=== PATIENT | female | born 1960 | race African-American/Black ===

== ENCOUNTER 2025-02-08 15:57 | Emergency (ER) | payer BC, SELFPAY ==
[2025-02-08] VITALS (9 sets, daily range): BP systolic 152–162; BP diastolic 79–103; PULSE 100; RESP 16–18; TEMP 36.2; O2SAT 91–100
--- NOTE | ~2025-02-08 | XR_ITS ---
CHEST RADIOGRAPH, PA AND LATERAL CLINICAL HISTORY: cough, sob . COMPARISON: 07/14/2021 TECHNIQUE: PA and lateral views of the chest. FINDINGS The cardiomediastinal silhouette is unremarkable. Platelike atelectasis within the left mid to lower lung field. Patchy alveolar opacification within the left upper lobe for which an infiltrate is suspected The remainder of the lungs are clear. IMPRESSION: Left upper lobe infiltrate Reviewed, dictated and finalized at location A. IMPRESSION: Left upper lobe infiltrate
--- NOTE | 2025-02-08 16:28 | ED.GENADULT ---
HPI - General Adult General Chief complaint: Unspecified Stated complaint: SPITTING UP BROWN MUCOUS Time Seen by Provider: 02/08/25 16:14 Source: patient Mode of arrival: ambulatory Limitations: no limitations History of Present Illness HPI narrative: Patient is a 64 y/o female who presents to the ED with c/o URI symptoms. Patient reports she has been sick over the last couple of days with cough, sinus pressure, headache, body aches, intermittent wheezing. Does note that she had to use a breathing treatment last night. Denies significant shortness of breath however. Reports she has had production of brown sputum with cough. Denies chest pain. Denies fevers, pain or swelling in legs. States has had similar symptoms. Related Data Allergies Allergy/AdvReac Type Severity Reaction Status Date / Time Penicillins Allergy Swelling Verified 02/08/25 16:08 Review of Systems Review of Systems: All systems reviewed & are unremarkable except as noted in HPI. All systems reviewed & are unremarkable except as noted in HPI and below Exam Narrative: GENERAL: Well appearing, obese with BMI of 38.5, non-toxic, in no acute distress. HEAD: Normocephalic, atraumatic. RESPIRATORY: Airway patent, respirations nonlabored. Occasional faint expiratory wheezing heard tony. No significant focal rhonchi. CARDIOVASCULAR: Regular rate and rhythm without murmurs, rubs, or gallops. ABDOMINAL: Soft, no significant tenderness throughout abdomen, nondistended. Normoactive BS. MUSCULOSKELETAL: Moves all extremities. No gross deformities. No calf tenderness. No peripheral edema. SKIN: Warm, dry, normal color. NEURO: A&O X3. Speech clear. Cranial nerves II-XII grossly intact. Steady gait. No ataxic movements. PSYCHIATRIC: Appropriate mood and affect. Normal interaction. Course Vital Signs Vital signs: Vital Signs Temperature 97.2 F L 02/08/25 16:02 Pulse Rate 100 02/08/25 16:02 Respiratory Rate 18 02/08/25 16:02 Blood Pressure 162/79 H 02/08/25 16:02 Pulse Oximetry 96 02/08/25 16:02 Temperature 97.2 F L 02/08/25 16:02 Pulse Rate 100 02/08/25 16:02 Respiratory Rate 16 02/08/25 17:24 Blood Pressure 162/93 H 02/08/25 16:46 Pulse Oximetry 97 02/08/25 17:48 Medical Decision Making [facility] Narrative Medical decision making narrative: Patient presented to ED with several day history of URI symptoms, productive cough, intermittent wheezing. Vital signs are stable upon arrival. Patient very mildly hypertensive, but in no acute distress. Is on medication for this. EKG without ischemic changes. Troponin is undetectable. Patient denying chest pain. Viral swabs are negative. Chest x-ray does show evidence of left upper lobe infiltrate. Will treat for CAP given new productive cough. Laboratory studies are otherwise fairly unremarkable. No leukocytosis. Stable electrolytes. No significant signs of dehydration. Urinalysis clear. Patient feeling improved after nebulizer treatment. Advised to continue inhaler/nebulizers at home, finish antibiotics, have close follow-up with PCP for further evaluation. Patient is in agreement with plan. She feels comfortable going home. Discussed strict return precautions. Patient voiced understanding. Discharged in stable condition. Medical Records Medical records reviewed: Yes I reviewed the external patient's medical records. Vital Signs Vital Signs: Vital Signs Temperature 97.2 F L 02/08/25 16:02 Pulse Rate 100 02/08/25 16:02 Respiratory Rate 18 02/08/25 16:02 Blood Pressure 162/79 H 02/08/25 16:02 Pulse Oximetry 96 02/08/25 16:02 Temperature 97.2 F L 02/08/25 16:02 Pulse Rate 100 02/08/25 16:02 Respiratory Rate 16 02/08/25 17:24 Blood Pressure 162/93 H 02/08/25 16:46 Pulse Oximetry 97 02/08/25 17:48 Lab Data Lab results reviewed: Yes I reviewed the patient's lab results. 02/08/25 16:57 02/08/25 16:57 Labs: Lab Results 02/08/25 02/08/25 02/08/25 Range/Units 16:54 16:57 17:39 WBC 4.8 (4.5-10.0) K/mm3 RBC 4.53 (4.2-5.4) M/mm3 Hgb 13.5 (12.0-15.0) g/dL Hct 40.3 (37.0-47.0) % MCV 89.0 (80-100) fl MCH 29.8 (26-34) pg MCHC 33.5 (32-36) g/dl RDW 13.2 (11.5-14.5) % Plt Count 191 (150-375) k/mm3 MPV 12.3 H (7.4-10.4) fl Immature Gran % (Auto) 0.2 (0-0.5) % Neut % (Auto) 65.8 (45.5-73.1) % Lymph % (Auto) 22.0 (18.3-44.2) % [place] % (Auto) 8.7 H (2.6-8.5) % Eos % (Auto) 2.9 (0-4.4) % Baso % (Auto) 0.4 (0.2-1.2) % Lymph # (Auto) 1.06 (0.9-3.2) K/mm3 [place] # (Auto) 0.4 (0.1-0.6) K/mm3 Eos # (Auto) 0.1 (0-0.3) K/mm3 Baso # (Auto) 0.0 (0.0-0.1) K/mm3 Abs Immat Gran (auto) 0.01 (0.00-0.031) K/mm3 Absolute Neuts (auto) 3.2 (1.3-6.7) K/mm3 Absolute Nucleated RBC 0.000 (0.0-0.012) K/mm3 Nucleated RBC % 0.0 (0.0-0.2) % Sodium 138 (137-145) mmol/L Potassium 4.0 (3.4-5.0) mmol/L Chloride 101 (98-107) mmol/L Carbon Dioxide 27 (22-30) mmol/L Anion Gap 10 (4-12) mmol/L BUN 10 (7-17) mg/dL Creatinine 0.64 L (0.7-1.0) mg/dL Estim Creat Clear Calc 91 ml/min Estimated GFR > 60 (59 - ) Glucose 100 (65-110) mg/dL Calcium 9.6 (8.4-10.2) mg/dL Total Bilirubin 0.4 (0.2-1.3) mg/dL AST 30 (14-36) U/L ALT 38 H (6-35) U/L Alkaline Phosphatase 128 H (38-126) U/L Troponin I < 0.012 (0.000-0.034) ng/mL Total Protein 8.0 (6.3-8.2) g/dL Albumin 4.7 (3.5-5.1) g/dL Urine Color Yellow (Yellow) Urine Appearance Clear (Clear) Urine pH 8.0 (5.0-9.0) Ur Specific [place] 1.019 (1.001-1.035) Urine Protein Negative (Negative) mg/dL Urine Glucose (UA) Negative (Negative) mg/dL Urine Ketones Negative (Negative) mg/dL Ur Blood (Man) Negative (Negative) Urine Nitrate Negative (Negative) Urine Bilirubin Negative (Negative) Urine Urobilinogen 0.2 (<2.0) mg/dL Leukocyte Esterase Rfl Negative (Negative) MICHAEL/UL Influenza A (RT-PCR) Negative (Negative) Influenza B (RT-PCR) Negative (Negative) RSV (RT-PCR) Negative (Negative) SARS-CoV-2 RNA (RT-PCR) Negative (Negative) Imaging Data Attestation: I personally reviewed and interpreted this imaging study as follows: Radiologist's impression: ITS Impressions Chest X-Ray 02/08/25 17:44 IMPRESSION: Left upper lobe infiltrate ECG Data EKG #1: Attestation: I personally reviewed and interpreted this ECG as follows: ECG completion date: 02/09/25 ECG completion time: 18:02 EKG Interpretation: normal rate (85), sinus rhythm (with sinus arrhythmia), non-specific ST changes and other (some baseline artifact) Discharge Plan Discharge Clinical Impression: Pneumonia Qualifiers: Pneumonia type: due to unspecified organism Laterality: left Lung location: upper lobe of lung Qualified Code(s): J18.9 - Pneumonia, unspecified organism Upper respiratory infection Qualifiers: URI type: unspecified URI Qualified Code(s): J06.9 - Acute upper respiratory infection, unspecified Patient Disposition: Home, Self-Care Condition: Stable Instructions: Antibiotic Form, Community Acquired Pneumonia (ED), Viral Syndrome (ED) Additional Instructions: Your testing for COVID, influenza, RSV was negative. Your chest x-ray did show evidence of a pneumonia. Take antibiotics as prescribed. Continue your inhalers as needed. Stay well hydrated. Utilize Tessalon Perles as needed for cough. Continue [id number] cough and cold medicines as needed for symptom relief, such as mucinex, robitussin, dayquil/nyquil. Follow-up closely with your primary care doctor for further evaluation. Return to the ED if you experience worsening or severe symptoms, difficulty breathing, chest pain, unable to keep down food or drink, pain or swelling in legs, or any other symptoms of concern. Patient Language: Amharic Prescriptions: New benzonatate 200 mg capsule 200 mg PO TID PRN (Reason: cough) Qty: 15 0RF doxycycline monohydrate 100 mg tablet 100 mg PO BID 5 Days Qty: 10 0RF Follow-up/Referrals: PHYSICIAN NOT ON STAFF,NONSTAFF [Primary Care Provider] - Time of Disposition: 19:48
--- OUTSIDE RECORDS SUMMARY | 2025-02-08 16:34 | XMS_ITS | Referral Summary ---
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
--- OUTSIDE RECORDS SUMMARY | 2025-02-08 16:34 | XMS_ITS | Clinical Summary ---
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 Gender Identity Not on file Sexual Orientation Not on file Plan of Treatment Health Maintenance Due Date Last Done Comments Breast Cancer Screening-Mammogram 1960 Cervical Cancer Screening 1960 Colon Cancer Screening-Colonoscopy 1960 Depression Screening 1960 Hepatitis C Screening 1960 DTaP/Tdap/Td Vaccine (1 - Tdap) 1971 Hepatitis B Screening 1978 Regular Well Visit/Exam 18-64 1978 Covid-19 Vaccine ( season) 2024 09/14/2022, 02/17/2022, 08/07/2021, Additional history exists Influenza Vaccine (#1) 2024 , 08/07/2021, 09/18/2019, Additional history exists Zoster Vaccine Completed 07/06/2022, 04/13/2022 Pneumococcal vaccine <65 Aged Out 10/14/2022 No longer eligible based on patient's age to complete this topic Insurance [facility] [employer] [id number] Care Teams Wood Piler Relationship Specialty Start Date End Date Phillip Hidalgo MD [address] [place] [address] PCP - General Internal Medicine 10/27/22
--- OUTSIDE RECORDS SUMMARY | 2025-02-08 16:35 | XMS_ITS | Data Portability ---
Author Organization [facility] Delia PARNELL Address [address] [place] [address] Care Team Providers Care Certified Dietary Manager Name Role Phone REGI FRANCIS Primary Care Provider SHERLYN MOSES Developmental Electronics Assembler Assessment Encounter Date Assessment Date Assessment LastModified by Organization Details LastModified Time 04/22/2022 04/22/2022 Deborah DURHAM Not available 04/22/2022 12:19:35 Plan of Treatment Reminders Order Date Submit Date Provider Last Modified By Organization Details Last Modified Time Details Appointments None recorded. Lab vaginal pathogens panel, MEAGAN+probe , vaginal fluid 2023 024 jacquelyn [facility], [address] [facility], [address], [place], [address], 4 16:21:23 urinalysi s, dipstick 2023 024 [email or web address] In-Office Order, Internal Use Only DO Not Attach Compendium DO Not Attach Compendium, Do Not Delete/merge, [id number] 12:34:25 vaginal pathogens panel, MEAGAN+probe , vaginal fluid 2021 022 JENNIFER [facility], [address] [facility], [address], [place], [address], 2 03:07:24 vitamin D, 25-hydrox y, total, serum 2019 020 [facility], [address] [facility], [address], [place], [address], 0 08:50:49 CMP, serum or plasma 2019 020 [facility], [address] [facility], [address], [place], [address], 0 07:10:44 CBC 2019 020 [facility], [address] [facility], [address], [place], [address], 0 07:10:45 lipid panel, serum 2019 020 [facility], [address] [facility], [address], [place], [address], 0 07:10:45 Referral physical therapist referral 2022 023 [facility], [address] [place], [address], 3 13:35:19 physical therapy back referral - please call patient to schedule appt. Thank you 2019 020 [facility], [address] [place], [address], 0 09:04:26 Procedures None recorded. Surgeries None recorded. Imaging MAMMO, screening , digital, bilateral - please call [phone] if this is not the correct code 2023 024 [facility] ([facility]), [address] [place], [address], 5 10:40:51 MAMMO, screening , bilateral 2021 022 [facility] ([facility]), [address] [place], [address], 2 16:34:55 XR, knee 2019 020 [facility] ([facility]), [address] [place], [address], 3 13:59:38 Medication Orders Relafen 750 mg tablet 2022 023 [id number], [address] [place], [place], [id number], 3 12:12:29 Celestone Soluspan 6 mg/mL suspensio n for injection 2022 023 [email or web address] Not available 3 12:57:35 Premarin 0.625 mg/gram vaginal cream 2021 022 JENNIFER Not available 2 12:14:19 cyclobenz aprine 10 mg tablet 2019 020 [facility] Not available 0 11:26:26 fluticaso ne propionat e 50 mcg/actua tion nasal spray,bekah pension 2019 020 [facility] [place], [address], 0 10:29:21 losartan 50 mg tablet 2019 020 [facility], [address] [place], [address], 0 10:29:23 hydrochlo rothiazid e 12.5 mg capsule 2019 020 [facility], [address] [place], [address], 0 10:29:20 Patient TargetsNo targets recorded. Patient Instructions Encounter Date Encounter Id Patient Instructions Last Modified By Organization Details Last Modified Time 04/22/2022 [id number] atrophic vaginitis: care instructions Not available 04/22/2022 12:16:09 well visit, wome n 50 to 65: care instructions Not available 04/22/2022 12:07:24 learning about breast cancer screening Not available 04/22/2022 12:06:33 09/30/2024 [id number] A healthy lifestyle: care instructions Not available 10/02/2024 13:26:20 Attending Physician Attestation S: 63 yo F here for well woman visit. Has lower abdominal midline pain x4 weeks; history of IBS with baseline 2-4 BMs/day. Has polyuria, no vaginal discharge. Has history of elective hysterectomy for contraception. No breast changes, vaginal bleeding. Has some pruritis and vaginal dryness. O: NAD. +bowel sounds. Minimal TTP of RLQ and LLQ. Neg CVA tenderness, obturator sign. A/P: Well woman - Mammo ordered. UTD on colonoscopy. Abd pain - F/u urine dipstick, NuSwab. If negative, f/u with PCP. Vaginal dryness - Not causing discomfort. {{I did not personally see or examine the patient with the resident. I was physically present to provide indirect supervision through entire encounter.* I personally saw the patient with the resident.}} Plan discussed with resident as documented in my brief note above. Taylor Fisher MD [email or web address] Not available 09/30/2024 11:17:12 Reason for Referral please call patient to [facility] appt. Thank you Referring Physician: Regi Francis, Internal Medicine, Encounter Date: 12/31/2019 Physical Therapist Referral for Osteoarthritis of knee Referring Physician: Brad Min, Orthopedic Surgery, Encounter Date: 01/13/2023 Results Created Date Observation Date Name Description Value Unit Range Abnormal Flag Note LastModifiedBy Organization Detail LastModifiedTime 01/20/20 20 01/21/2020 CMP, serum or plasm a glucose 162 mg/dL 65-99 above high normal Not Available [facility] ([facility]) [address] [facility], [place], [address], 01/21/2020 07:10:44 01/20/20 20 01/21/2020 CMP, serum or plasm a BUN 16 mg/dL 6-24 Not Available [facility] ([facility]) [address] [place], [address], 01/21/2020 07:10:44 01/20/20 20 01/21/2020 CMP, serum or plasm a creatinine 0.82 mg/dL 0.57-1 .00 Not Available [facility] ([facility]) [address] [facility] [place], [address], 01/21/2020 07:10:44 01/20/20 20 01/21/2020 CMP, serum or plasm a eGFR if nonafricn AM 79 mL/mi n/1.7 3 >59 Not Available [facility] ([facility]) [address] [place], [address], 01/21/2020 07:10:44 01/20/20 20 01/21/2020 CMP, serum or plasm a eGFR if africn AM 91 mL/mi n/1.7 3 >59 Not Available [facility] ([facility]) [address] [place], [address], 01/21/2020 07:10:44 01/20/20 20 01/21/2020 CMP, serum or plasm a BUN/creatini ne ratio 20 9-23 Not Available [facility] ([facility]) [address] [place], [address], 01/21/2020 07:10:44 01/20/2001/21/2020 CMP, serum or plasm a sodium 139 mmol/ L 134-14 4 Not Available [facility] ([facility]) [address] [place], [address], 01/21/2020 07:10:44 01/20/20 20 01/21/2020 CMP, serum or plasm a potassium 4.3 mmol/ L 3.5-5. 2 Not Available [facility] ([facility]) [address] [facility] [place], [address], 01/21/2020 07:10:44 01/20/2001/21/2020 CMP, serum or plasm a chloride 100 mmol/ L 96-106 Not Available [facility] ([facility]) [address] [facility] [place], [address], 01/21/2020 07:10:44 01/20/2001/21/2020 CMP, serum or plasm a carbon dioxide, total 24 mmol/ L 20-29 Not Available [facility] ([facility]) [address] [facility] [place], [address], 01/21/2020 07:10:44 01/20/2001/21/2020 CMP, serum or plasm a calcium 9.6 mg/dL 8.7-10 .2 Not Available [facility] ([facility]) [address] [facility] [place], [address], 01/21/2020 07:10:44 01/20/2001/21/2020 CMP, serum or plasm a protein, total 6.4 g/dL 6.0-8. 5 Not Available [facility] ([facility]) [address] [facility] [place], [address], 01/21/2020 07:10:44 01/20/2001/21/2020 CMP, serum or plasm a albumin 4.2 g/dL 3.8-4. 9 Not Available [facility] ([facility]) [address] [facility] [place], [address], 01/21/2020 07:10:44 01/20/2001/21/2020 CMP, serum or plasm a globulin, total 2.2 g/dL 1.5-4. 5 Not Available [facility] ([facility]) [address] [facility] [place], [address], 01/21/2020 07:10:44 01/20/2001/21/2020 CMP, serum or plasm a A/G ratio 1.9 1.2-2. 2 Not Available [facility] ([facility]) [address] [facility] [place], [address], 01/21/2020 07:10:44 01/20/2001/21/2020 CMP, serum or plasm a bilirubin, total 0.3 mg/dL 0.0-1. 2 Not Available [facility] ([facility]) [address] [facility] [place], [address], 01/21/2020 07:10:44 01/20/2001/21/2020 CMP, serum or plasm a alkaline phosphatase 80 IU/L 39-117 Not Available [facility] ([facility]) [address] [facility] [place], [address], 01/21/2020 07:10:44 01/20/2001/21/2020 CMP, serum or plasm a AST (SGOT) 18 IU/L 0-40 Not Available [facility] ([facility]) [address] [facility] [place], [address], 01/21/2020 07:10:44 01/20/2001/21/2020 CMP, serum or plasm a ALT (SGPT) 21 IU/L 0-32 Not Available [facility] ([facility]) [address] [place], [address], 01/21/2020 07:10:44 01/20/2001/21/2020 CBC WBC 6.2 x10e3 /uL 3.4-10 .8 Not Available [facility] ([facility]) [address] [facility] [place], [address], 01/21/2020 07:10:44 01/20/2001/21/2020 CBC RBC 4.55 x10e6 /uL 3.77-5 .28 Not Available [facility] ([facility]) [address] [place], [address], 01/21/2020 07:10:44 01/20/20 20 01/21/2020 CBC hemoglobin 13.3 g/dL 11.1-1 5.9 Not Available [facility] ([facility]) [address] [facility] [place], [address], 01/21/2020 07:10:44 01/20/2001/21/2020 CBC hematocrit 40.4 % 34.0-4 6.6 Not Available [facility] ([facility]) [address] [facility], [place], [address], 01/21/2020 07:10:44 01/20/2001/21/2020 CBC MCV 89 fL 79-97 Not Available [facility] ([facility]) [address] [facility], [place], [address], 01/21/2020 07:10:44 01/20/2001/21/2020 CBC MCH 29.2 pg 26.6-3 3.0 Not Available [facility] ([facility]) [address] [facility], [place], [address], 01/21/2020 07:10:44 01/20/2001/21/2020 CBC MCHC 32.9 g/dL 31.5-3 5.7 Not Available [facility] ([facility]) [address] [facility], [place], [address], 01/21/2020 07:10:44 01/20/2001/21/2020 CBC RDW 12.8 % 11.7-1 5.4 Not Available [facility] ([facility]) [address] [facility], [place], [address], 01/21/2020 07:10:44 01/20/2001/21/2020 CBC platelets 204 x10e3 /uL 150-45 0 Not Available [facility] ([facility]) [address] [facility], [place], [address], 01/21/2020 07:10:44 01/20/20 20 01/21/2020 CBC NRBC LAPELER Not Available [facility] ([facility]) [address] [facility], [place], [address], 01/21/2020 07:10:44 01/20/20 20 01/21/2020 lipid panel , serum cholesterol, total 180 mg/dL 100-19 9 Not Available [facility] ([facility]) [address] [facility], [place], [address], 01/21/2020 07:10:45 01/20/20 20 01/21/2020 lipid panel , serum triglyceride s 73 mg/dL 0-149 Not Available [facility] ([facility]) [address] [facility], [place], [address], 01/21/2020 07:10:45 01/20/20 20 01/21/2020 lipid panel , serum HDL cholesterol 76 mg/dL >39 Not Available [facility] ([facility]) [address] [facility], [place], [address], 01/21/2020 07:10:45 01/20/2001/21/2020 lipid panel , serum VLDL cholesterol eulalia 15 mg/dL 5-40 Not Available [facility] ([facility]) [address] [facility], [place], [address], 01/21/2020 07:10:45 01/20/20 20 01/21/2020 lipid panel , serum LDL cholesterol calc 89 mg/dL 0-99 Not Available [facility] ([facility]) [address] [facility], [place], [address], 01/21/2020 07:10:45 01/20/2001/21/2020 lipid panel , serum comment: LAPELER Not Available [facility] ([facility]) [address] [facility], [place], [address], 01/21/2020 07:10:45 01/20/20 20 01/21/2020 lipid panel , serum LDL/HDL ratio 1.2 ratio 0.0-3. 2 LDL/H DL Ratio Men Women 1/2 Avg.R isk 1.0 1.5 Avg.R isk 3.6 3.2 2X Avg.R isk 6.2 5.0 3X Avg.R isk 8.0 6.1 Not Available [facility] ([facility]) [address] [facility], [place], [address], 01/21/2020 07:10:45 01/20/20 20 01/21/2020 vitam in D, 25-hy droxy , total , serum vitamin D, 25-hydroxy 26.9 NG/mL 30.0-1 00.0 below low normal Vitam in D defic iency has been defin ed by the Insti tute of [facility] and an Endoc rine Socie ty pract ice guide line as a level of serum 25-OH vitam in D less than 20 ng/mL (1,2) . The Endoc rine Socie ty went on to furth er defin e vitam in D insuf ficie ncy as a level betwe en 21 and 29 ng/mL (2). 1. IOM (Inst itute of [facility] Polar). 2009. Dieta ry refer ence rochelle es for calci um and D. Erin ramey [place]: The [facility] Press . 2. Minor alvarez MF, Binkecia ey [place], Donald off-F errar i CARTER, et al. Evalu ation , treat ment, and preve ntion of vitam in D defic iency : an Endoc rine Socie ty clini eulalia pract ice guide line. JCEM. 2010; 96(7) :1911 -30. Not Available [facility] ([facility]) [address] [facility], [place], [address], 01/21/2020 07:10:46 04/22/20 22 04/25/2022 NUSWA B VAGIN ITIS PLUS (VG+) atopobium vaginae Low - 0 score Not Available [facility] ([facility]) [address] [facility], [place], [address], 04/26/2022 03:07:24 04/22/20 22 04/25/2022 NUA B VAGIN ITIS PLUS (VG+) bvab 2 Low - 0 score Not Available [facility] ([facility]) [address] [place], [address], 04/26/2022 03:07:24 04/22/20 22 04/25/2022 NUA B VAGIN ITIS PLUS (VG+) megasphaera 1 Low - 0 score Calcu late total score by dom story the 3 indiv idual bacte rial vagin osis (BV) marke r score s toget her. Total score is inter prete d as follo ws: Total score 0-1: Indic ates the absen ce of BV. Total score 2: Indet ermin ate for BV. Addit ional clini eulalia data shoul d be evalu ated to estab griselda a diagn osis. Total score 3-6: Indic ates the prese nce of BV. This test was devel oped and its perfo rmanc e darshana cteri stics deter mined by [facility]. It has not been clear ed or appro elisabeth by the Food and Drug Admin istra tion. Not Available [facility] ([facility]) [address] [place], [address], 04/26/2022 03:07:24 04/22/2004/25/2022 [facility] B VAGIN ITIS PLUS (VG+) caty albicans, MEAGAN Negati ve negati ve Not Available [facility] ([facility]) [address] [place], [address], 04/26/2022 03:07:24 04/22/2004/25/2022 NUA B VAGIN ITIS PLUS (VG+) caty glabrata, MEAGAN Negati ve negati ve Not Available [facility] ([facility]) [address] [place], [address], 04/26/2022 03:07:24 04/22/20 22 04/25/2022 NUA B VAGIN ITIS PLUS (VG+) trich vag by MEAGAN Negati ve negati ve Not Available [facility] ([facility]) [address] [facility], [place], [address], 04/26/2022 03:07:24 04/22/20 22 04/25/2022 NUA B VAGIN ITIS PLUS (VG+) chlamydia trachomatis, MEAGAN Negati ve negati ve Not Available [facility] ([facility]) [address] [facility], [place], [address], 04/26/2022 03:07:24 04/22/20 22 04/25/2022 NUA B VAGIN ITIS PLUS (VG+) neisseria gonorrhoeae, MEAGAN Negati ve negati ve Not Available [facility] ([facility]) [address] [facility], [place], [address], 04/26/2022 03:07:24 09/30/20 24 09/30/2024 urina lysis , dipst ick Leukocytes Negati ve Not Available In-Office Order Internal Use Only DO Not Attach Compendium DO Not Attach Compendium, Do Not Delete/merge, [id number] 09/30/2024 11:11:09 09/30/20 24 09/30/2024 urina lysis , dipst ick Nitrite negati ve Not Available In-Office Order Internal Use Only DO Not Attach Compendium DO Not Attach Compendium, Do Not Delete/merge, [id number] 09/30/2024 11:11:09 09/30/20 24 09/30/2024 urina lysis , dipst ick Urobilinogen .2 Not Available In-Of fice Order Internal Use Only DO Not Attach Compendium DO Not Attach Compendium, Do Not Delete/merge, [id number] 09/30/2024 11:11:09 09/30/20 24 09/30/2024 urina lysis , dipst ick Protein Negati ve Not Available In-Office Order Internal Use Only DO Not Attach Compendium DO Not Attach Compendium, Do Not Delete/merge, [id number] 09/30/2024 11:11:09 09/30/20 24 09/30/2024 urina lysis , dipst ick pH 7.0 Not Available In-Office Order Internal Use Only DO Not Attach Compendium DO Not Attach Compendium, Do Not Delete/merge, [id number] 09/30/2024 11:11:09 09/30/20 24 09/30/2024 urina lysis , dipst ick Blood Negati ve Not Available In-Office Order Internal Use Only DO Not Attach Compendium DO Not Attach Compendium, Do Not Delete/merge, [id number] 09/30/2024 11:11:09 09/30/20 24 09/30/2024 urina lysis , dipst ick Specific [place] 1.020 Not Available In-Off ice Order Internal Use Only DO Not Attach Compendium DO Not Attach Compendium, Do Not Delete/merge, [id number] 09/30/2024 11:11:09 09/30/20 24 09/30/2024 urina lysis , dipst ick Ketone Negati ve Not Available In-Office Order Internal Use Only DO Not Attach Compendium DO Not Attach Compendium, Do Not Delete/merge, [id number] 09/30/2024 11:11:09 09/30/20 24 09/30/2024 urina lysis , dipst ick Bilirubin Negati ve Not Available In-Office Order Internal Use Only DO Not Attach Compendium DO Not Attach Compendium, Do Not Delete/merge, [id number] 09/30/2024 11:11:09 09/30/20 24 09/30/2024 urina lysis , dipst ick Glucose Negati ve Not Available In-Office Order Internal Use Only DO Not Attach Compendium DO Not Attach Compendium, Do Not Delete/merge, [id number] 09/30/2024 11:11:09 08/24/20 20 08/24/2020 roldan GARY bilat eral No observ ation record ed. [facility] ([facility]) [address] [place], [address], 04/22/2022 11:53:48 08/24/20 20 08/24/2020 MAMMO , scree yessica, bilat eral No observ ation record ed. [address] ([facility]) [address] [place], [address], 04/22/2022 11:53:50 10/13/20 20 10/13/2020 US, head + neck, soft tissu e No observ ation record ed. [email or web address] [facility] [address] [place], [address], 10/29/2020 18:04:10 09/24/20 21 09/24/2021 MAMMO , scree yessica, bilat eral No observ ation record ed. [address] [place], [address], 04/22/2022 11:53:47 07/04/20 22 07/04/2022 XR, cervi eulalia spine , 2 or 3 view No observ ation record ed. [email or web address] [facility] [address] [place], [address], 07/04/2022 10:36:43 10/21/20 22 10/21/2022 MAMMO , scree yessica, bilat eral No observ ation record ed. [email or web address] [facility] [address] [place], [address], 11/01/2022 16:58:37 12/16/19 23 12/16/2022 xr knee bilat (4/ + views ) Examin ation: Bilate ral knees. Exam time: 1326 hours. Clinic al histor y: Chroni c pain and swelli ng. Compar vishal: None. Techni que: Sunris e and weight bearin g AP, PA and latera l views each. Findin gs: There is a longit udinal fractu re throug h the very medial aspect of the medial tibial platea u on the left, best apprec iated on the AP view. Alignm ent is anatom ic. No other fractu re is identi fied. There are relati vely symmet lonnie marked degene rative change s manife sted by tricom partme ntal joint space narrow ing and periar ticula r osteop hyte format ion. These are greate st in the medial femoro tibial compar tments where there is near bone-o n-bone apposi tion and associ ated subcho ndral sclero sis. No other signif icant bone or joint abnorm ality is noted. The soft tissue s are unrema rkable . IMPRES COTY: 1. Left proxim al tibial fractu re as descri bed. 2. Degene rative change s as descri bed. Electr onical ly Signed By: Nba sexton MD on 12/16/19 1:58 PM READ BY: BLANE FERGUSON. Date: 2022 13:58 [email or web address] [facility] ([facility]) [address] [place] [address], [address], 01/02/2023 08:55:51 01/14/2001/13/2023 XR, knee EXAMIN ATION: XRY KNEE (3 VIEWS) - BILATE RAL HISTOR Y: Bilate ral knee pain. COMPAR VISHAL: No compar vishal. TECHNI QUE: Weight bearin g AP, latera l and sunris e views of both knees. FINDIN GS: Right: No defini te acute fractu re or disloc ation. Modera te to advanc ed joint space narrow ing of the medial compar tment with subcho ndral sclero sis. Modera te to advanc ed joint space narrow ing of the patell ofemor al compar tment. Tricom partme ntal margin al osteop hytes noted. No destru ctive bone proces s. No joint effusi on. Left: Vertic ally orient ed linear lucenc y identi fied involv ing the medial tibial platea u. Chroni c nondis placed fractu re is not exclud ed. Modera te to advanc ed joint space narrow ing of the medial compar tment with signif icant subcho ndral sclero sis. Mild to modera te osteoa rthrit ic joint space narrow ing of the patell ofemor al and latera l compar tments . No destru ctive proces s. Tricom partme ntal margin al osteop hytes noted. No joint effusi on. IMPRES COTY: 1. Tricom partme ntal osteoa rthrit ic change s involv ing both knees bilate rally as descri bed. Findin gs are most promin ent within the medial compar tments . 2. Potent ial chroni c nondis placed fractu re of the left medial tibial platea u. Electr onical ly Signed By: Robert Mercado MD on 01/14/20 12:58 PM READ BY: ROBERT MERCADO Date: 2022 12:58 [email or web address] [facility] ([facility]) [address] [place] [address], [address], 01/23/2023 17:24:43 12/27/19 25 12/27/2024 MAMMO , scree yessica, digit al, bilat eral No observ ation record ed. [facility] [address] [place], [address], 12/30/2024 11:07:04 Result Notes None recorded. Problems Name Problem SNOMED Code Status Onset Date Resolution Date Notes Provider Name and Address Organization Details Recorded Time Cough 92653176 Completed 201610/22/2018 Regi Francis MD Attn: Tom story,[address] [facility], [place], [address], [facility] 9 13:17:55 Bronchit is [id number] Active 2016 Regi Francis MD Attn: Tom story,[address] [facility], [place], [address], [place] [facility] 7 11:03:11 Pain in upper limb 973797282 Active 2016 Upper arm Regi Francis MD Attn: Tom story,[address] [facility], [place], [address], [facility] 7 11:05:58 Nasal congesti on 00042899 Active 2017 Regi Francis MD Attn: Tom story,[address], [place], [address], [place] [facility] 8 16:21:15 Sinusiti s 80048472 Active 2017 Regi Francis MD Attn: Tom story,[address], [place], [address], [place] [facility] 8 12:44:45 Allergic rhinitis 97595466 Active 2018 Regi Francis MD Attn: Tom story,[address] [facility], [place], [address], [place] [facility] 9 13:17:40 Cough 56358384 Active 2018 Regi Francis MD Attn: Tom story,[address] [facility], [place], [address], [place] [facility] 9 13:17:55 Elevated blood-pr essure reading without diagnosi s of hyperten coty 042922412 Completed 201806/26/2019 Regi Francis MD Attn: Tom story,[address] [facility], [place], [address], [place] [facility] 9 10:43:28 Dyspnea on exertion 76612178 Active 2018 Regi Francis MD Attn: Tom story,[address] [facility], [place], [address], [place] [facility] 9 11:33:09 Edema of lower extremit y 498842875 Active 2018 Regi Fracnis MD Attn: Tom story,[address] [facility], [place], [address], [place] [facility] 9 11:33:27 Weight gain 1560685 Active 2018 Regi Francis MD Attn: Tom story,[address] [facility], [place], [address], [place] [facility] 9 11:33:39 Essentia l hyperten coty 06052465 Active 2018 new onset Regi Francis MD Attn: Heidykarla story,20[address] [facility], [place], [address], [place] [facility] 9 10:43:19 Pain in bilatera l legs 84803319430 966109 Active 2018 Regi Francis MD Attn: Heidykarla story,20[address] [facility], [place], [address], [place] [facility] 9 10:58:14 Has a sore throat 207232674 Active 2018 Regi Francis MD Attn: Heidykarla story,20[address] [facility], [place], [address], [place] [facility] 9 11:02:24 Osteoart hritis 287576664 Active 2018 LS spine Regi Francis MD Attn: Tom jez,[address] [facility], [place], [address], [place] [facility] 9 11:24:01 Irritabl e bowel syndrome 99672963 Active 2019 Luis Fernando Mateoeliceo [place] [facility] 0 12:33:05 Angioede gabino 32178078 Active 2019 localize d Regi Francis MD Attn: Tom story,[address] [facility], [place], [address], [place] [facility] 0 10:20:12 Pain in right knee Active 2019 Regi Francis MD Attn: Tom story,[address] [facility], [place], [address], [place] [facility] 0 11:24:05 Scalp tenderne ss 69985530 Active Regi Francis MD Attn: Tom story,20[address] [facility], [place], [address], [place] [facility] 5 15:38:48 Heart murmur 62726221 Active Regi Francis MD Attn: Tom story,[address] [place], [address], [place] [facility] 5 11:38:42 Vitamin D deficien cy 85069635 Active Regi Francis MD Attn: Tom story,[address] [place], [address], [place] [facility] 6 16:57:11 Atrophic vaginiti s 16089368 Active Luis Fernando [place] [facility] 5 15:48:13 Vulvitis 34585248 Active Luis Fernando [place] [facility] 5 15:48:13 Infectio n by Trichomo hiral 72880414 Active Luis Fernando [place] [facility] 5 19:11:06 Facial paresthe merritt 34561051 Active Regi Francis MD Attn: Tom story,[address] [place], [address], [place] [facility] 5 11:38:42 Joint swelling 525935477 Completed 10/22/2018 Luis Fernando [place] [facility] 8 11:54:29 Lower abdomina l pain 18448707 Active Regi Francis MD Attn: Tom story,[address] [place], [address], [place] [facility] 5 17:46:54 Hypergly cemia 38832753 Active Regi Francis MD Attn: Tom story,[address] [place], [address], [place] [facility] 6 15:08:30 Chronic back pain 351876213 Active Regi Francis MD Attn: Heidykarla story,[address] [place], [address], [place] [facility] 6 15:08:30 Foot pain 38084345 Nella Francis MD Attn: Tom jez,[address] [place], [address], [place] [facility] 4 19:08:58 Obesity 004670004 Active Regi Francis MD Attn: Tom story,20[address] [facility], [place], [address], [facility] - [facility] 6 16:57:11 Foot callus 077612987 Active Regi Francis MD Attn: Tom story,[address] [facility], [place], [address], [facility] - [facility] 4 19:08:58 Pigmente d skin lesion 683870903 Active Regi Francis MD Attn: Tom story,[address] [facility], [place], [address], [facility] - [facility] 6 16:57:11 On examinat ion - tenderne ss Completed 10/22/2018 Luis Fernando bolivar, [facility] 8 11:54:17 Pain in right knee Completed 10/22/2018 Regi Francis MD Attn: Tom story,[address] [facility], [place], [address], [facility] - [facility] 0 11:24:05 Complain ing of - upper back ache Completed 201510/22/2018 Luis Fernando bolivar, [facility] 8 11:54:21 Epidermo id cyst of skin 941907305 Active 2016 Regi Francis MD Attn: Tom story,[address] [place], [address], [facility] - [facility] 7 14:31:26 Problem Notes None recorded. Procedures Surgical History Date Name Laterality Status Provider Name and Address Organization Details Recorded Time 01/14/20 23 Left Arthrocentesis Major Joint completed Brad Min MD [address] [place], [address], [facility] - [facility] 01/13/2023 12:05:10 10/21/20 22 Date of Last Mammogram completed Karon Barreto [place] - [place] 09/26/2024 16:40:51 05/30/20 19 Most Recent Mammogram completed Karon Barreto MA [facility] 11/21/2019 12:13:01 12/09/19 10 Date of Last Pap Smear completed Karon Barreto MA [facility] 03/19/2015 15:31:01 11/13/19 07 Hysterectomy completed Karon Barreto MA [facility] 03/19/2015 15:32:10 Imaging Results Imaging Date Name Status LastModified by Organiz ation Details LastModified Time 08/24/2020 MAMMO, screening, bilateral completed [address] ([facility]) [address] [place], [address], 04/22/2022 11:53:48 08/24/2020 MAMMO, screening, bilateral completed [address] ([facility]) [address] [place], [address], 04/22/2022 11:53:50 10/13/2020 US, head + neck, soft tissue completed [address] [place], [address], 10/29/2020 18:04:10 09/24/2021 MAMMO, screening, bilateral completed [address] [place], [address], 04/22/2022 11:53:47 07/04/2022 XR, cervical spine, 2 or 3 view completed [email or web address] [address] [place], [address], 07/04/2022 10:36:43 10/21/2022 [facility] [address] [place], [address], 11/01/2022 16:58:37 12/16/2022 xr knee bilat (4/ + views) completed [facility] ([facility]) [address] [place], [address], 01/02/2023 08:55:51 01/13/2023 XR, knee completed [facility] ([facility]) [address] [place], [address], 01/23/2023 17:24:43 12/27/2024 M[facility]MO, screening[facility] [address] [facility] [place], [address], 12/30/2024 11:07:04 Procedure Notes None recorded. Medical Equipment None Reported. Allergies Allergen ID Allergen Name Allergen Category Reaction Reaction Severity Criticality Documentation Date Start Date Code Code System Note Provider Name and Address Organization Details Recorded Time 8998 Product containin g penicilli n (product) medicatio n itching severe Not available 10/27/2014 10186 8001 SNOMED Not Available Not Available Not Available Medications Name Sig Start Date Stop Date Status Note LastModified by Organization Details LastModified Time aerochamb er mis mv active Not Available Not Available No t Available multivita min tablet Take 1 tablet every day by oral route. 06/16 completed Not Available Not Available Not Available losartan 50 mg tablet Take 1 tablet every day by oral route. active Not Available Not Available No t Available cyclobenz aprine 10 mg tablet TAKE 1 TABLET BY MOUTH 3 TIMES DAILY NEEDED active Not Available Not Available No t Available methocarb elizabeth 500 mg tablet active Not Available Not Available No t Available metformin 500 mg tablet active Not Available Not Available Not Available Qvar 80 mcg/actua tion Metered Aerosol oral inhaler Inhale 2 puffs twice a day by inhalati on route. 06/23 completed Changed to Flovent HFA Not Available Not Available Not Available promethaz ine-DM 6.25 mg-15 mg/5 mL oral syrup TAKE 5 ML BY MOUTH EVERY 6 HOURS 11/29 completed Not Available Not Available Not Available nystatin 100,000 unit/mL oral suspensio n active Not Available Not Available Not Available prednison e 10 mg tablet active Not Available Not Available Not Available nabumeton e 750 mg tablet Take 1 tablet twice a day by oral route. active Not Available Not Available No t Available clindamyc in HCl 300 mg capsule 11/29 completed Not Available Not Available Not Available albuterol sulfate 2.5 mg/3 mL (0.083 %) solution for nebulizat ion INHALE 1 VIAL BY MOUTH PER NEBULIZE R EVERY 6 HOURS NEEDED active Not Available Not Available No t Available cetirizin e 10 mg tablet 1 tab p.o. daily active Not Available Not Available No t Available Stool Softener 100 mg capsule Take 1 capsule every day by oral route. 12/27 completed Not Available Not Available Not Available azithromy phuc 250 mg tablet TAKE 2 TABLETS BY MOUTH ON DAY ONE, THEN 1 TABLET DAILY FOR 4 DAYS 04/22 completed Not Available Not Available Not Available miconazol e nitrate 2 % topical cream 11/21 completed Not Available Not Available Not Available ibuprofen 800 mg tablet active Not Available Not Available Not Available hydrocodo ne 5 mg-acetam inophen 325 mg tablet active Not Available Not Available Not Available Celestone Soluspan 6 mg/mL suspensio n for injection Take 3 mL by injectio n route. 2022 active Not Available Not Available Not Avai lable meloxicam 15 mg tablet active Not Available Not Available Not Available metronida zole 0.75 % (37.5 mg/5 gram) vaginal gel Insert 1 applicat orful every day by vaginal route at bedtime for 5 days. active Not Available Not Available No t Available prednison e 20 mg tablet 06/16 completed Not Available Not Available Not Available clindamyc in HCl 150 mg capsule Take 1 capsule every 6 hours by oral route for 7 days. 10/22 completed Not Available Not Available Not Available promethaz ine 6.25 mg-codein e 10 mg/5 mL syrup Take 10 mL every 6 hours by oral route as needed. active Not Available Not Available No t Available metronida zole 500 mg tablet TAKE 1 TABLET BY MOUTH TWICE DAILY 11/29 completed Not Available Not Available Not Available acetamino phen 300 mg-codein e 30 mg tablet TAKE 1 TABLET BY MOUTH EVERY FOUR TO SIX HOURS NEEDED AFTER active Not Available Not Available No t Available dextromet horphan-g uaifenesi n 10 mg-100 mg/5 mL oral syrup Take 10 mL every 6 hours by oral route. 06/16 completed Not Available Not Available Not Available amlodipin e 5 mg tablet TAKE 1 TABLET BY MOUTH DAILY active Not Available Not Available No t Available ciproflox acin 500 mg tablet active Not Available Not Available No t Available sulfameth oxazole 800 mg-trimet hoprim 160 mg tablet active Not Available Not Available Not Available tramadol 50 mg tablet active Not Available Not Available Not Available acetamino phen 500 mg tablet TAKE 1 TABLET BY MOUTH EVERY 6 HOURS NEEDED active Not Available Not Available No t Available triamcino lone acetonide 0.1 % topical cream APPLY A THIN LAYER TO THE AFFECTED AREA(S) BY TOPICAL ROUTE 2 TIMES PER DAY 11/29 completed Not Available Not Available Not Available Muscle Rub 15 %-10 % topical cream Apply three times daily 10/22 completed Not Available Not Available Not Available baclofen 20 mg tablet Take 1 tablet 4 times a day by oral route. 04/22 completed Not Available Not Available Not Available meloxicam 7.5 mg tablet active Not Available Not Available Not Available losartan 100 mg-hydroc hlorothia zide 25 mg tablet TAKE 1 TABLET BY MOUTH EVERY DAY active Not Available Not Available No t Available oxycodone -acetamin ophen 5 mg-325 mg tablet active Not Available Not Available Not Available dicyclomi ne 20 mg tablet TAKE 1 TABLET BY MOUTH FOUR TIMES A DAY NEEDED active Not Available Not Available No t Available Mapap (acetamin ophen) 500 mg capsule TAKE TWO TABLETS BY MOUTH EVERY EIGHT HOURS NEEDED active Not Available Not Available No t Available baclofen 10 mg tablet Take 1 tablet twice a day by oral route as needed. 11/08 completed Not Available Not Available Not Available hydrocodo ne 7.5 mg-acetam inophen 325 mg tablet Take 1 tablet every 12 hours by oral route. active Not Available Not Available No t Available pantopraz ole 40 mg tablet,de layed release active Not Available Not Available Not Available promethaz ine 25 mg tablet 12/25 completed Not Available Not Available Not Available losartan 25 mg tablet Take 1 tablet every day by oral route. 06/16 completed Not Available Not Available Not Available hydrochlo rothiazid e 12.5 mg capsule TAKE 1 CAPSULE BY MOUTH EVERY DAY active Not Available Not Available No t Available omeprazol e 20 mg capsule,d elayed release active Not Available Not Available Not Available Banophen 25 mg capsule 04/22 completed Not Available Not Available Not Available diclofena c sodium 75 mg tablet,de layed release TAKE ONE (1) TABLET BY MOUTH TWICE DAILY active Not Available Not Available No t Available bisacodyl 5 mg tablet,de layed release active Not Available Not Available Not Available cefuroxim e axetil 500 mg tablet active Not Available Not Available Not Available polyethyl lexie glycol 3350 17 gram/dose oral powder active Not Available Not Available Not Available albuterol sulfate HFA 90 mcg/actua tion aerosol inhaler INHALE 2 PUFFS BY MOUTH EVERY 4 HOURS NEEDED active Not Available Not Available No t Available Vitamin D2 1,250 mcg (50,000 unit) capsule TAKE 1 CAPSULE BY MOUTH EVERY WEEK active Not Available Not Available No t Available fluticaso ne propionat e 50 mcg/actua tion nasal spray,bekah pension INSTILL ONE (1) SPRAY IN EACH NOSTRIL DAILY active Not Available Not Available No t Available loratadin e 10 mg tablet Take 1 tablet every day by oral route. 06/16 completed Not Available Not Available Not Available naproxen 500 mg tablet Take 1 tablet twice a day by oral route with meals. active Not Available Not Available No t Available neomycin 3.5 mg/g-poly myxin B 10,000 unit/g-de xameth 0.1 % eye oint 11/29 completed Not Available Not Available Not Available Premarin 0.625 mg/gram vaginal cream INSERT 0.5 GRAMS INTO THE VAGINA TWICE WEEKLY active Not Available Not Available No t Available lactulose 10 gram/15 mL oral solution TAKE 15-30 ML BY MOUTH DAILY *MAX DAILY DOSE: 60ML* active Not Available Not Available No t Available Flovent HFA 110 mcg/actua tion aerosol inhaler INHALE ONE PUFF BY MOUTH TWICE DAILY active Not Available Not Available No t Available Oysco 500/D 500 mg-5 mcg (200 unit) tablet 11/21 completed Not Available Not Available Not Available hydrochlo rothiazid e 12.5 mg tablet Take 1 tablet every day by oral route. 06/16 completed Not Available Not Available Not Available Symbicort 160 mcg-4.5 mcg/actua tion HFA aerosol inhaler Two puffs BID active Not Available Not Available No t Available Symbicort 80 mcg-4.5 mcg/actua tion HFA aerosol inhaler INHALE TWO (2) PUFFS BY MOUTH TWICE A DAY active Not Available Not Available No t Available Calcium with Vitamin D 600 mg-10 mcg (400 unit) tablet Take 1 tablet twice a day by oral route. 06/16 completed Not Available Not Available Not Available calcium 600 mg (as carbonate )-vitamin D3 20 mcg (800 unit) tablet Take 1 tablet twice a day by oral route. 11/21 completed Not Available Not Available Not Available Aerochamb er Plus Flow-Vu,M edium Mask active Not Available Not Available Not Available Aerochamb er Plus Flow-Vu,L arge Mask active Not Available Not Available No t Available Breo Ellipta 200 mcg-25 mcg/dose powder for inhalatio n 04/22 completed Not Available Not Available Not Available Fluzone Quad (PF) 60 mcg (15 mcg x 4)/0.5 mL IM syringe 11/21 completed Not Available Not Available Not Available Vitals Date Recorded Body height Body mass index (BMI) Body weight Oxygen saturation Oxygen saturation in Arterial blood by Pulse oximetry Body temperature Heart rate Systolic blood pressure Diastolic blood pressure Provider Name and Address Organization Details Last Updated DateTime 0 167.64 cm 37.8 kg/m2 194469. 61 g 94 % 94 % 98.1 [degF] 78 /min 136 mm[Hg] 78 mm[Hg] Katiuska Mitchell [place] - [facility] 0 10:09:03 Date Recorded Body height Provider Name an d Address Organization Details Last Updated DateTime 06/16/2020 167.64 cm Katiuska Mitchell [place] [facility] 0 09:57:56 Date Recorded Body height Body mass index (BMI) Body weight Systolic blood pressure Diastolic blood pressure Provider Name and Address Organization Details Last Updated DateTime 04/22/2022 166.37 cm 38 kg/m2 544501.4 3 g 126 mm[Hg] 82 mm[Hg] Karon Barreto [place] - [facility] 2 11:46:52 Date Recorded Body height Body mass index (BMI) Body weight Heart rate Body temperature Respiratory rate Systolic blood pressure Diastolic blood pressure Provider Name and Address Organization Details Last Updated DateTime 3 166.37 cm 37.4 kg/m2 109988. 78 g 88 /min 97.1 [degF] 18 /min 128 mm[Hg] 89 mm[Hg] Brigid Castro [place] - [facility] 3 11:28:57 Date Recorded Body height Body mass index (BMI) Body weight Heart rate Oxygen saturation Oxygen saturation in Arterial blood by Pulse oximetry Systolic blood pressure Diastolic blood pressure Provider Name and Address Organization Details Last Updated DateTime 4 166.37 cm 38.4 kg/m2 550880. 36 g 79 /min 96 % 96 % 102 mm[Hg] 78 mm[Hg] Ktae Gonzales [place] - [place] 4 10:47:46 Social History Question Answer Notes LastModified by Organizat ion Details LastModified Time Tobacco Smoking Status Former Smoker Kate Gonzales MA null, [place] - [place] 09/30/2024 10:43:23 Do You Have An Advance Directive? No Information not available 03/19/2015 What Is Your Level Of Alcohol Consumption? Occasional Information not available 02/03/2015 Is Blood Transfusion Acceptable In An Emergency? Yes Information not available 03/19/2015 What Is Your Level Of Caffeine Consumption? Occasional Information not available 02/03/2015 How Much Tobacco Do You Chew? None Information not available 03/19/2015 Are You Currently Employed? Yes Information not available 03/19/2015 What Type Of Diet Are You Following? REGULAR Information not available 03/19/2015 Which Illicit Or Recreational Drugs Have You Used? Marijuana Information not available 10/22/2018 Education 12 Information no t available 03/19/2015 What Is Your Occupation? [employer] Information not available 03/19/2015 Live Alone Or With Others? With Others Information not available 03/19/2015 What Was The Date Of Your Most Recent Tobacco Screening? 09/30/2024 Information not available 09/30/2024 How Many Children Do You Have? 1 Information not available 03/19/2015 Performs Monthly Self-breast Exam? No Information no t available 03/19/2015 Do You Use Protection During Sex? No Information not available 03/19/2015 What Is Your Relationship Status? Information not available 03/19/2015 Seat Belts Used Routinely Yes Information not available 03/19/2015 Are You Sexually Active? Yes Information not available 03/19/2015 Do You Have Smoke And Carbon Monoxide Detectors In Your Home? Yes Information not available 04/22/2022 At What Age Did You Start Smoking Tobacco? 12 Information not available 02/03/2015 Are You Passively Exposed To Smoke? Yes Information no t available 04/22/2022 How Much Tobacco Do You Smoke? 1 PPW Information not available 02/03/2015 General Stress Level Low Information not available 03/19/2015 Do You Use Any Illicit Or Recreational Drugs? Yes Information not available 04/22/2022 Do You Use Sunscreen Routinely? No Information not available 03/19/2015 Has Tobacco Cessation Counseling Been Provided? Yes Information not available 04/22/2022 On What Date Was Tobacco Cessation Counseling Provided? 09/30/2024 Information not available 09/30/2024 How Many Years Have You Smoked Tobacco? 42 Information not available 02/03/2015 Do You Or Have You Ever Used Any Other Forms Of Tobacco Or Nicotine? No Information not available 04/22/2022 Sex: Unknown Functional Status Question Answer Note LastModified by Organizat ion Details LastModified Time What is your exercise level? Occasional Information not available 03/19/2015 Mental Status None recorded. Family History Relationship Description Onset Age of this Age Resolved Age Notes LastModified by Organization Details LastModified Time Mother Cerebrovascu lar accident [email or web address] Not available 0 01/04/2016 14:39:59 Mother Diabetes mellitus [email or web address] Not available 12/15 14:39:59 Mother Heart disease [email or web address] Not available 12/15 14:39:59 Mother Hypertensive disorder [email or web address] Not available 12/15 14:39:59 Sister Diabetes mellitus [email or web address] Not available 12/15 14:39:59 Sister Hypertensive disorder leandra Not available 12/15 14:39:59 Father Heart disease leandra Not available 12/15 14:39:59 Medical History Condition Response Blood Diseases N Kidney Cyst N Hyperthyroidism N Blood Transfusion N Blood disorders N MRSA N Emphysema N Depression N Pneumonia N Peripheral Arterial Disease N Premature N Edema N TIA N Headaches/Migraines N Obesity N Infertility N Polyps N Hematuria N Neck Injury N Polio N Hospital Admission other than N Neurologic Disorder N Other Sleep Disorders N Rheumatoid Arthritis N Fibromyalgia N Abdominal Aortic Aneurysm Repair N Kidney Disease N Heart Conditions N Heart Disease/Heart Problems N Hospitalizations N Brain Tumors N Acne N Eating Disorder N Constipation N Meningitis N Cerebral Palsy N Tuberculosis N Myocardial Infarction N Peripheral Vascular Disease N Substance Abuse N Vertigo N Sleep Disorder N Cirrhosis N Pulmonary Embolism N Chicken Pox N Flomax Use Past or Present N Hematologic Disease N Anxiety/Depression N Thyroid Disease N Colon Cancer N Glaucoma N Lung Disease N Developmental or Behavioral Disorders N Bipolar N Pacemaker N Diverticulitis/Diverticulosis N Anesthesia Complications N Orthopedic Problems N Orthotics N Head Injury/Concussion N Congenital Anomalies N Rosario Bite N Chronic Kidney Disease N Endometriosis N Liver Disease N Dialysis N Schizophrenia N Speech Delay N Chronic Obstructive Pulmonary Disease N Parkinson's Disease N Thyroid Problems N GI Problems N Developmental Delay N Immune System Disorder N Multiple Sclerosis N Colon Polyps N Diabetes N Cardiomyopathy N Blood Transfusions N Heart Problems/Murmur Y Eye Trauma N Congestive Heart Failure (CHF) N Valvular Heart Disease N Hyperlipidemia N Double Vision N Abuse/Domestic Violence N Hepatitis B N Lupus N Epilepsy/Seizures N Reflux/GERD N Aneurysm N Heart Disease N Bronchitis N Hypertension N Pre-Eclampsia N Other N Gout N High Blood Pressure N Kidney Stones N Head Trauma/Injury N Congenital Heart Disease N Spine Problems N Gastrointestinal Disease N Lung Mass N Sinusitis N Obstructive Sleep Apnea N Muscle, Joint, or Bone Problems Y Autoimmune disease N Vision or Eye Problems N Arthritis N Blood Clot N Cancer N Seasonal allergies N Leg or Foot Ulcers N Raynaud's Disease N Aortic Aneurysm N Arrhythmia N Heart Problems N Ambloypia N Ear or Hearing Problems N Hyperparathyroidism N Migraines N Artificial Joints N Kidney or Bladder Problems N NSAID Use N Encephalitis N PTSD N Ulcers N Prostate Hypertrophy N Bleeding Disorder N AIDS/HIV N Urinary Tract Infection N Back Problems N Atrial Flutter N GERD/Reflux N Hepatitis N Autism Spectrum Disorder (ASD) N Breast Cancer N Hernia N Hypothyroidism N Breast Problem N Genitourinary Disease N Deep Vein Thrombosis N Varicose Veins N Cystic Fibrosis N Hearing Loss N Developmental Problems N Carotid Disease N Vitamin D Deficiency N ADHD N Bladder or Kidney Problems N High Cholesterol N [place] N Valvular Abnormalities N Psychiatric/Mental Health Condition N Organ Transplant N Foot Deformity N Allergies/Hayfever N Dyslipidemia N Hyponatremia N Diabetic Eye Disease N Osteoporosis/Osteopenia N Back Pain N Proteinuria N Mental Illness N Neurological Problems N Ovarian Cancer N Bedwetting N Seizures/Epilepsy N Kidney Failure N Ocular trauma N Dementia N Diverticulitis N Sleep Apnea N Mental Problems N Warfarin Management N Osteoporosis N Gynecological History Statement/Question Response Abnormal Pap Y Date of Last Mammogram 10/21/2022 STIs/STDs Y HPV Vaccine N Most Recent Mammogram 05/30/2019 Age at Menarche 15 Current Control Method Hysterectom y Age at First Child 23 If Post Menopausal, Age at Menopause 47 Sexually Active? Y Menses Monthly N Date of Last Pap Smear 12/09/2009 Sexual Problems? Y LMP Unknown Desired Control Method Hysterectom y Obstetrics History GPAL:G 1 P 1 0 0 1 Type Value Multiple Births 0 Full Term 1 Induced 0 Spontaneous 0 Premature 0 Living 1 Ectopics 0 Total 1 Immunizations Vaccine Type Date Status Note Provider Nam e and Address Organization Details Recorded Time COVID-19, mRNA, LNP-S, PF, 30 mcg/0.3 mL dose 1 completed Day[place], [place] [facility] 06/08/2021 14:45:39 COVID-19, mRNA, LNP-S, PF, 30 mcg/0.3 mL dose 1 completed Day[place], [place] [facility] 06/08/2021 14:46:15 Influenza, split virus, quadrivalent, preservative 8 completed Not Available [facility] 11/30/2019 02:42:02 Influenza, split virus, quadrivalent, PF 8 completed Not Available [facility] 11/30/2019 02:49:49 Past Encounters Encounter ID Performer Location Encounter Start Date Encounter Closed Date Diagnosis/Indication Diagnosis SNOMED-CT Code Diagnosis ICD10 Code Diagnosis Note [id number] IDANIA Fitzgerald (Adult Med) [address] [place] [address] 86364-481 0 10/27/2014 15:08:22 10/27/2014 17:11:54 Foot pain 00221223 Chronic back pain 035627490 Obesity 917468811 Foot callus [id number] Naomi Nelson Urvashi (Adult Med) [address] [place] [address] [id number] 0 02/03/2015 14:16:28 02/03/2015 16:03:32 Chronic back pain 998739457 Obesity 368710152 Scalp tenderness 85240903 Heart murmur 49829615 [id number] Luis Fernando Skinnerwill Landin ([employer]) [address] [place] [address] [id number] 0 03/19/2015 14:58:17 03/19/2015 15:49:45 Atrophic vaginitis 32325900 Vulvitis 00816753 [id number] GABINO Lai (Adult Med) [address] [place] [address] [id number] 0 03/25/2015 09:41:56 03/25/2015 14:16:36 Facial paresthesia 77048660 Joint swelling 046733561 Behind left knee Heart murmur 67186445 Chronic back pain [id number] Urvashi (Adult Med) [address] [place] [address] 70288-347 0 07/13/2015 16:08:49 07/14/2015 11:34:37 Lower abdominal pain 57468255 [id number] Urvashi ([employer]) [address] [place] [address] [id number] 0 07/30/2015 14:17:27 07/30/2015 17:00:29 Screening for malignant neoplasm of breast 311803598 [id number] Mounika Landin (Adult Med) [address] [place] [address] [id number] 0 10/06/2015 10:23:15 10/12/2015 09:59:12 Chronic back pain 089215819 R52 Hyperglycemia 90148347 R 73.9 Obesity 188587256 E66.9 Screening for malignant neoplasm of colon 176697855 Z12.11 [id number] Mounika Landin (Adult Med) [address] [place] [address] [id number] 0 01/04/2016 13:53:44 01/05/2016 14:05:17 Chronic back pain 159655976 R52 Pigmented skin lesion 20 4509167 L81.9 Pt to call ophthalmol ogy re periorbita l lesion [id number] Lucy Sanchez is Urvashi (Adult Med) [address] [place] [address] 75412-533 0 02/09/2016 14:31:30 02/09/2016 18:23:13 Pigmented skin lesion 689081988 L81.9 Pt to call ophthalmol ogy re periorbita l lesion Obesity 408208482 E66.9 Vitamin D deficiency 347 67104 E55.9 Screening for malignant neoplasm of colon 873127665 Z12.11 [id number] MD Urvashi Graves (Adult Med) [address] [place] [address] [id number] 0 05/24/2016 15:11:19 05/24/2016 15:13:25 On examination - tenderness 143253702 R52 left flank Rib xrays/cold packs [id number] Luyc Sanchez is Urvashi (Adult Med) [address] [place] [address] [id number] 0 07/05/2016 13:20:31 07/05/2016 18:11:18 Chronic back pain 479401524 R52 Hyperglycemia 79068802 R 73.9 Joint swelling 957358623 M25.40 Behind left knee Pain in right knee 84769 11299 52899 M25.086 [id number] MD Urvashi Graves (Adult Med) [address] [place] [address] 04637-758 0 11/03/2016 13:14:25 11/03/2016 15:05:21 Lower abdominal pain 36630058 R10.30 Complainin g of - upper back ache 323465258 M54.6 [id number] MD Urvashi Graves (Adult Med) [address] [place] [address] 78511-194 0 02/16/2017 13:01:42 02/16/2017 14:49:08 Chronic back pain 608754589 R52 Pain in right knee 60899 23152 71717 M25.561 Lower abdominal pain 545 92630 R10.30 Obesity 663751016 E66.9 Vitamin D deficiency 347 45599 E55.9 [id number] MD Urvashi Graves (Adult Med) [address] [place] [address] 24723-876 0 11/08/2017 10:20:35 11/08/2017 11:09:52 Cough 35959616 R05 Bronchitis 36743086 J40 Pain in upper limb 17088 6003 M79.895 [id number] Luis Fernando Galindo Urvashi ([employer]) [address] [place] [address] 55955-083 0 11/29/2017 10:44:13 11/29/2017 13:32:37 Screening mammography 09176742 Z12.31 Administra tion of influenza vaccine 90576378 Z23 Irritable bowel syndrome 00284810 K58.9 Gynecologi c examination 03192503 Z01.909 [id number] MD Urvashi Graves (Adult Med) [address] [place] [address] [id number] 0 01/25/2018 14:55:52 01/25/2018 16:29:25 Pain in upper limb 646267856 M79.629 Pain in right knee 22798 92108 60742 M25.561 Complainin g of - upper back ache 689473690 M54.6 Nasal congestion 4857034 0 R09.81 [id number] MD Urvashi Graves (Adult Med) [address] [place] [address] [id number] 0 06/12/2018 10:58:09 06/12/2018 12:53:52 Sinusitis 58304447 J32.9 Chronic back pain 659900 002 R52 Pain in upper limb 49074 6003 M79.629 Nasal congestion 4358432 0 R09.81 Vitamin D deficiency 347 48618 E55.9 Hyperglycemia 10301046 R 73.9 [id number] MD Urvashi Graves (Adult Med) [address] [place] [address] [id number] 0 10/02/2018 11:14:09 10/02/2018 13:06:00 Hyperglycemia 70295640 R73.9 Chronic back pain 185459 002 R52 Nasal congestion 0604777 0 R09.81 Pain in upper limb 96397 6003 M79.629 Vitamin D deficiency 347 29701 E55.9 [id number] Luis Fernando Galindo Urvashi ([employer]) [address] [place] [address] 79787-435 0 10/22/2018 10:56:18 10/22/2018 14:09:44 Gynecologic examination 07245194 Z01.419 Z11.51 Screening mammography 24 116945 Z12.31 History of chlamydial infection 028803113 Z86.19 Administra tion of influenza vaccine 94952492 Z23 Screening for malignant neoplasm of colon 749978554 Z12.11 Atrophic vaginitis 61175 000 N95.2 Menopausal syndrome 1237 33211 N95.9 Infection by Trichomonas 97562978 A59.9 Constipation 97661223 K5 9.00 Exposure t o sexually transmissible disorder 779856589 Z20.2 [id number] Regi Francis MD [facility] (Adult Med) [address] [place] [address] 43165-180 0 12/27/2018 12:21:41 12/27/2018 13:29:32 Cough 22563682 R05 Allergic rhinitis 249717 04 J30.9 Pain in upper limb 09345 6003 M79.312 [id number] [facility] [address] [place] [address] 81132-292 0 05/30/2019 09:27:01 05/30/2019 16:27:15 Elevated blood-pressure reading without diagnosis of hypertension 663579939 R03.0 Dyspnea on exertion 6084 5006 R06.09 EXposed to second hand smoke Weight gain 0143204 R63. 5 Edema of l ower extremity 649209923 R60.0 [id number] Sam Brooks MD [facility] [place] [address] 06/21/2019 11:16:28 06/24/2019 12:08:19 Dyspnea 390200632 R06.02 causes may include exposure to mold leading to reactive airways, GERD,bronc hitis or asthma Elevated blood-pressure reading without diagnosis of hypertension 270581333 R03.0 uncontroll ed Morbid obesity 865923048 E66.01 encouraged to loose Obstructiv e sleep apnea syndrome 10205478 G47.33 T [id number] Reg[facility] [address] [place] [address] [id number] 0 06/26/2019 09:37:43 06/26/2019 10:50:42 Essential hypertension 32480011 I10 Dyspnea on exertion 6084 5006 R06.09 EXposed to second hand smoke. Will try for Breo Ellipta Bronchitis 72148372 J40 [id number] [facility] [address] [place] [address] 77191-353 0 07/17/2019 10:05:13 07/17/2019 11:06:59 Essential hypertension 24427245 I10 Unchanged post HCTX .Will add losartan Pain in bi lateral legs 1328481576 3873243 M79.604 M79.605 Has a sore throat 600570 002 J02.9 Advised warm salt water gargle [id number] [facility] [address] [place] [address] 86268-602 0 07/31/2019 09:54:23 07/31/2019 11:22:46 Essential hypertension 07679071 I10 Increase losartan to 50 mg/d Pain in bi lateral legs 3140849459 8881561 M79.604 M79.605 Osteoarthritis 890823549 M19.90 DJD LS spine. Discussed PT. She will schedule based on insurance coverage Allergic rhinitis 501598 04 J30.9 [id number] MD Urvashi Graves (Adult Med) [address] [place] [address] 65203-476 0 09/24/2019 10:44:00 09/24/2019 11:15:31 Pain in bilateral legs 3509457513 7306668 M79.604 M79.605 Essential hypertension 23199042 I10 Increase losartan to 50 mg/d Osteoarthritis 725736488 M19.90 DJD LS spine. Discussed PT. She will schedule based on insurance coverage Edema of l ower extremity 260377543 R60.0 Dyspnea on exertion 6084 5006 R06.09 EXposed to second hand smoke. Will try for Breo Ellipta Allergic rhinitis 391441 04 J30.9 Chronic back pain 175163 002 R52 Vitamin D deficiency 347 43379 E55.9 Hyperglycemia 76233846 R 73.9 Bronchitis 29388368 J40 Gynecologi c examination 00523170 Z01.058 [id number] Luis Fernando Galindo Urvashi ([employer]) [address] [place] [address] 61048-505 0 11/21/2019 11:12:50 11/22/2019 15:16:42 Screening mammography 88008981 Z12.31 Atrophic vulva 600600633 N90.5 Irritable bowel syndrome 38654017 K58.9 Morbid obesity 622727000 E66.01 Menopausal syndrome 1237 75393 N95.9 [id number] MD Urvashi Graves (Adult Med) [address] [place] [address] 19897-096 0 12/31/2019 09:21:30 01/01/2020 12:15:56 Essential hypertension 02866666 I10 Increase losartan to 50 mg/d Dyspnea on exertion 6084 5006 R06.09 EXposed to second hand smoke. Will try for Breo Ellipta Chronic back pain 639913 002 R52 Bronchitis 91618054 J40 Allergic rhinitis 485089 04 J30.9 Angioedema 79326945 T78. 3XXA observe at present Vitamin D deficiency 347 43232 E55.9 [id number] MD Urvashi Graves (Adult Med) [address] [place] [address] [id number] 0 06/16/2020 08:25:21 06/17/2020 13:50:47 Pain in right knee 3407907439 84795 M25.561 Chronic back pain 952477 002 R52 [id number] SHAKEEL ARANA ([employer]) [address] [place] [address] 54954-113 0 04/22/2022 11:32:58 04/27/2022 12:18:23 Screening for malignant neoplasm of breast 657510023 Z12.31 Routine screening ordered for September 2022 Gynecologi c examination 22319789 Z01.419 Normal gynecologi c exam today.Cerv ical cancer screening: n/a, hysterecto myBreast cancer screening: Last mammogram 09/2021, BIRADS 1. Discussed SBEColonos copy: done 2020Vagini tis: routine nuswab, treat as needed. Pt not sexually active. t/exercise : Counseled regarding importance of physical activity, healthy diet and appropriat e calcium intake.RTC in 1yr Atrophic vaginitis 73347 000 N95.2 Pt with hx atrophic vaginitis managed with premarin. Renewed today [id number] Brad Min MD [facility] [address] [place] [address] 01/13/2023 11:15:08 01/13/2023 13:58:04 Osteoarthritis of knee 818720564 M17.11 M17.12 Left 60 min discussion of DX, Tx options, goals, HEP, Wt Lose, alternativ es Bilateral sacroiliitis 3609371146 5677155 M46.1 Bilateral trochanteric bursitis 9999832022 4870404 M70.61 M70.62 Left side sciatica 67691 84008 75266 M54.32 May need LS work up Chondromal acia of bilateral patellas 0943783194 1412346 M22.41 M22.42 Obesity 425053131 E66.9 loose 30+ pounds Chronic back pain 212592 002 R52 Hyperglycemia 31020966 R 73.9 2015 5.6 [id number] TAYLOR FISHER MD [facility] ([employer]) [address] [place] [address] 97456-747 0 09/30/2024 09:45:37 10/15/2024 15:43:22 Gynecologic examination 21022579 Z01.419 PAP not due. Mammogram ordered below. Rest of Hx & exam reassuring f/u 1yr Polyuria 99958581 R35.89 DDx UTI vs. DM vs. prior bladder trauma. UA reassuring .Plan:Supp ortive caref/u w/ PCP Vaginal discharge 909244 006 N89.8 Symptomati c.Nuswab for eval Abdominal pain 03666730 R10.9 Hx of hysterecto my. Physical exam reassuring . Minimal urinary Sx. UA reassuring .Not sexually active.Teresa n:Nuswab for eval.Retur n & ER precaution s givenEncou raged to f/u w/ PCP to eval for possible GI causes Screening mammography of bilateral breasts 3140868704 40743 Z12.31 Due.Discus sed recommenda tion w/ Pt who agrees.Rec ommend regular self breast exams. Body mass index 30+ - obesity 204661300 Z68.38 BMI 38Recommen d continued lifestyle modificati ons & exercise >150mins/w k Health Concerns Section Related Observation LastModified by Organization Detai ls LastModified Time None Recorded Concern Status LastModified by Organization Details LastModified Time None Recorded Advance Directives Directive N: Payers Encounter Date Sequence Insurance Name Policy Number Policy Suggs Covered Member ID Suggs Member ID Guarantor Name 12/31/2019 1 [place] [facility] (MEDICAID REPLACEMENT - HMO) [id number] Claudia Zayra [id number] Claudia Zayra 06/16/2020 1 [place] [facility] ([place]ID REPLACEMENT - [place]MO) [id number] Claudia Zayra [id number] Claudia Zayra 04/22/2022 1 [place] [facility] ([place]ID REPLACEMENT - [place]MO) [id number] Claudia Zayra [id number] Claudia Zayra 01/13/2023 1 [place] [facility] (MEDICAID REPLACEMENT - [place]MO) [id number] Claudia Zayra [id number] Claudia Zayra 09/30/2024 1 [place] [facility] ([place]ICAID REPLACEMENT - [place]MO) [id number] Claudia Zayra [id number] Claudia Zayra Notes Date Note Type Note Provider Name and Address Organization Details Recorded Time 12/31/2019 text/html BP follow up. Experiencing stinging sensation in localized area on right forearm recently. Needs refills on her meds. Regi Francis MD Attn: Accounting,[address] [facility], [place], [address], [place] - [facility] 12/31/2019 10:28:39 06/16/2020 text/html Telephone visit due to Covid-19 precautions. Developed pain in the right knee. Pain radiates to gross and is not affected by movement. No significant swelling exists. She has not fallen. Her back pain persists. No significant benefit from baclofen. Regi Francis MD Attn: Accounting,[address] [facility], [place], [address], [facility] 06/16/2020 11:26:52 04/22/2022 text/html Annual Table Attendant Post-MenopausalRepor kenneth bypatient.Menopausal Symptoms:no menopausal symptoms;inadequacy of lubrication of vaginal mucosa Vaginal Bleeding:history of menopause having occurred; no history of post menopausal bleeding Urinary Symptoms:no hematuria; no incontinence; no nocturia; no urinary frequency Vulva:no genital lesion; no vulvar atrophy Vagina:normal vaginal discharge;atrophic vagina Breast:no breast lump; no nipple discharge; no breast pain Psychological Symptoms:no depression; no anxiety Preventive Measures:encourage regular mammograms starting age 40; encourage self breast examination; encourage regular exercise; encourage no tobacco use; needs to schedule mammogram; history of recent colonoscopy 61y/o female, previous Dr. Galindo pt, presenting to [facility]. Pt has no concerns at this time. Wanting a refill of premarin for vaginal pruritis. Denying abnormal vaginal discharge, abnormal vaginal bleeding, dysuria, urinary frequency, and urgency. SHAKEEL ARANA Attn: Accounting,[address] [facility], [place], [address], [facility] 04/27/2022 10:50:54 01/13/2023 text/html KneeReported bypatient.Location:b ilateral; posterior; medial; L>R Quality:aching; gnawing; throbbing; deep; constant Severity:moderate Duration:continuous since onset Timing:chronic; gradual; recurrent Context:overuse; atraumatic Alleviating Factors:rest Aggravating Factors:standing; walking; bending/squatting; ROM; weight bearing; upstairs; downstairs; daytime; nighttime; cold weather; damp weather Associated Symptoms:no numbness; no tingling; no redness; no warmth; no ecchymosis; no catching/locking; no instability; no drainage; no fever; no chills; no weight loss; no change in bowel/bladder habits;weakness;swel ling;popping/clickin g;buckling;grinding; radiation down leg; LLE radiation to ankle, mostly ant Previous Surgery:none Prior Imaging:none Previous Injections:none Previous PT:noneNotes:Was seeing another ortho, considering TKR Brad Min MD [address], [place], [address], [place] [facility] 01/13/2023 12:13:01 09/30/2024 text/html Annual GYNReport ed bypatient.Urinary symptoms:No hematuria; No incontinence Vulva:No genital lesion Breast:No breast pain; No breast lump; No nipple discharge Menopausal Symptoms:Hot flashes(rare) Psychological symptoms:No depression; No anxiety Preventive measures:Encourage self breast examination; Encourage regular exercise 63 F h/o atrophic vaginitis, chronic back pain, HTN, IBS & BMI >30 presenting for property assessment monitor & lower abd pain. Site: Lower abd band likeIntensity: 10Quality: Throbbing piercing. IntermittentOnset: 4 moRadiating: noAlleviating factors: On its ownAggravating factors: NoAssociated factors: No dysuria, no hematuria, no discharge.+freq. No flank pain.Hysterectomy 2007 & 2008 (thinks was a total w/ oopherectomy)BMs 2-4x/day, dicyclomine regularlyNot sexually active in past 10yrs[address] H[address] prior & tx'd TAYLOR FISHER MD Attn: Accounting,[address] [facility], [place], [address], [place] [facility] 10/06/2024 17:48:00 OBGyn Episode Ob Episode Information Episode Created Date Number of Fetuses Patient Bloodtype Patient rh Status Prepregnancy Weight lbs Domestic Partner Domestic Partner Phone Father Name Business Information Manager Status 11/29/19 18 1 CLOSED Fetus Data First Name Last Name Admitted to NICU Weight (g) Sex Living Outcome Pediatric Complications Fetus ID Race Codes Race Delivery Type 3345.24 1 F Full Term [id number] Vaginal Only Valdo Calculation Initial Valdo Date Initial Exam Date Initial Exam Provider Initial Ultrasound Date Last Menstrual Period Date Ultra Sound Weeks Gestation 0 Eighteen To Twenty Week Valdo Update Ultra Sound Date Fundal Height At Umbil Quickening Date Ultra Sound Latest Weeks Gestation Final Valdo Confirmed By Final Valdo Confirmed Date Final Valdo Date Ultra Sound Latest Days Gestation 0 0 Menstrual History Last Menstrual Date Menses Monthly On Bcp Conception Prior Menses Frequency Hcg Plus Date Menarche Onset Age Delivery Information Delivery Date Delivery Type Labor Anesthesia Weeks Gestation Incision Type Labor Labor Length Hrs Delivered By Post Complications Tubal Sterilization Discharge Date Comments 4 [facility] [address] [place] Discharge Information Feeding Method Contraceptive Method Maternal HG B and HCT Levels
--- OUTSIDE RECORDS SUMMARY | 2025-02-08 16:35 | XMS_ITS | CONTINUITY OF CARE DOCUMENT ---
Author Name bill khan Address Unknown Organization [facility] Office Address [address] [place] [address] Phone [phone] Care Team Providers Care Medical Pathologist Name Role Phone ASHISH FRANCIS MD Unavailable ASHISH FRANCIS MD Unavailable [phone] INSURANCE PROVIDERS Payer name Policy type / Coverage type [place] [employer] ID [id number] MEDICAID (2) Medicaid [id number]
--- OUTSIDE RECORDS SUMMARY | 2025-02-08 16:35 | XMS_ITS | Data Portability ---
Author Organization [place] - [facility] [place], Main Office Address [address] [place] [address] Assessment Encounter Date Assessment Date Assessment LastModified by Organization Details LastModified Time 07/09/2024 07/09/2024 the patient has severe primary osteoarthritis left knee joint moderately severe on the right her x-rays show some mild advancement of the osteoarthritis she is essentially [id number] in the medial compartment of the left knee now. She has a sliver of joint space remaining on the right medial compartment. At her request under sterile conditions I injected the patient's bilateral knee joints in the office today with 4 cc 0.5% Marcaine and 20 mg of Kenalog each. The patient tolerated the procedures well. I will see her back in 3 months if necessary. Her right hip is feeling much better after the intra-articular injection under fluoroscopy about 3 months ago she continues to do well there. Today I refilled her cyclobenzaprine and diclofenac for pain control. She voiced understanding agrees above plan she will call for any further problems difficulties or questions. Not available 07/09/2024 09:27:18 07/25/2024 07/25/2024 Assessment: Nicotine smoke: 1/2 ppd [id number] =18.5 pack years Mild persistent asthma Mild restrictive airflow impairment Mod OSAHS, AHI = 21, on CPAP c/o [employer] Plan: The following were reviewed and explained to the patient: [facility] home sleep study 07/10/19 AHI = 21 Lab data 02/28/23 multiple environmental allergies Chest 2 views 02/28/23 no acute process PFT 07/05/19 FEV1 1.52 L (72%), BD 130 mL = 9%, TLC 3.19 L (62%), DLCO 57%, DLCO/VA 120% PFT 04/18/23 FEV1 1.95 L (102%), BD 310 mL = 19%, TLC 3.47 L (74%), DLCO 48%, DLCO/VA 107% PFT 06/10/24 FEV1 1.67 L (82%), BD 160 mL = 11%, TLC 3.05 L (62%), DLCO 43%, DLCO/VA 99% PAP compliance downloaded and interpreted x 20 minutes. Data reviewed and explained to the patient. Average apnea/hypopnea index (AHI) is 2.7. Patient used PAP > 4 hours 100% of the time. PAP is set at 7-16 cmH2O. PAP will be reset at 8-15 cmH2O. Oxygen supplementation: none Keep ramp start @ 4 cmH2O. Keep ramp duration @ 45 minutes. Keep humidifier level at 6. Keep EPR standard manager multimedia. Patient is benefiting from PAP therapy. Encouraged patient to maintain PAP use more than 70% of the time. Statement of PAP use and benefits will be sent to the home care store. Educated the patient on problems and solutions associated with positive airway pressure (PAP) use. Difficulty tolerating pressure, mask leaks, intolerance of interface, nasal congestion, claustrophobic response, dry mouth, and unintentional mask removal during sleep were covered. Dry mouth is a normal occurrence for people who just start out on PAP therapy because they are not used to air blowing in to the throat to hold open. Dry mouth is exacerbated for people who wear nasal PAP mask and whose jaw drops open during sleep. Not only does this create a much less efficient therapy because of leakage, it also causes dry mouth. There are a couple solutions to help prevent this type of problem. A simple solution would be to wear a chinstrap which essentially holds the jaw in place. A second solution would be a switch to a full face mask which covers both the nose and mouth. Although this is another easy solution, using a full face mask for some could seem claustrophobic or confining. There is no silver bullet solution as no single mask is right for everybody. Sometimes it takes a bit of experimentation to find a PAP mask which best meets the patient's needs as well as fits comfortably. Another tactic is to use a humidifier on your PAP machine. Most new PAP machines have integrated humidifiers. Humidification is moore when dealing with symptoms of dry mouth because the humidifier can supply both warm and room temperate air. Even a small amount of humidity in the airflow will help nasal passages to stay hydrated. If a person is using both a full face mask and a PAP machine with a heated humidifier and is still experiencing dry mouth, an ill-fitted PAP mask might be causing the problem. Leakage can be caused by a mask that is to large or small, the wrong style mask, the cushion is degraded or simply because the mask's straps aren't adjusted correctly. If leakage occurs, dry air from the room can leak in while humidification escapes. The result is reduced humidification within the circuit and resulting in dry throat and mouth. Finally, beyond factors involving the PAP machine and mask, dry mouth can also be caused or worsened by dehydration. The general recommendation to during eight 8 oz. glasses of water a day might be too little for many people. When people drink large amounts of coffee or other caffeine beverages, or sweat a lot during the day, making sure to rehydrate is an important part of PAP therapy. Provided the patient with a list of local home care stores where positive airway pressure (PAP) units, accoutrement, and services are available. Home care store selection is based on patient's insurance carrier. Patient will setup an appointment with [facility] for supplies and pressure adjustments. A major predictor of success with use of PAP is follow-up with both the respiratory supplier and the treating physician. The download results can show the treating physician information about adherence to treatment, residual AHI while on treatment and presence of large mask leakage. This information is especially helpful if the patient has residual sleepiness despite treatment. General information on sleep disordered breathing, evaluation of sleep disordered breathing, treatment with PAP therapy, and living with PAP therapy were covered. We discussed with the patient the impact of weight on: Sleep disordered breathing Hypertension MICHAELLE Left hip bursitis Bilateral knee OA Bilateral pes planus We discussed with the patient the benefit of PAP therapy on: Sleep disordered breathing Hypertension MICHAELLE Educated the patient on sleep hygiene measures. Relaxing rituals to rest easy, understanding foods with positive and negative impact on sleep, creating a peaceful sleep environment, timing of exercise, using herbal sleep aids, and practicing sleep-friendly meditation were covered. To determine how much sleep is needed, the patient will assess where she falls on the spectrum, examine what lifestyle factors such as work schedules and stress are affecting the quality and quantity of sleep. In general, adults need 7-9 hours of sleep. Educated the patient regarding foods that promote sleep. These include but are not limited to cherries, bananas, toast, oatmeal, and warm milk. Educated the patient regarding foods and drinks to avoid before bedtime. These include but are not limited to aged cheese, chocolate, spicy foods, tomato-based sauces, soy, ginseng tea and processed meat. Advised to continue not to smoke. General information on bronchial asthma was covered. Patient will monitor peak flow daily at a set time and again when symptoms of chest tightness, cough, dyspnea or wheezing occur. Patient will bring peak flow record to subsequent visits. The color of a traffic light will guide the patient's use of asthma medications: (1) Green means Go Zone. Peak flow: above 80% of personal best. Symptoms: Breathing is good, no cough or wheeze present, patient sleeps through the night and can work and play. Plan: Patient will continue the use of preventative medicine. (2) Yellow means Caution Zone. Peak flow: between 50-80% of personal best. Symptoms: Presence of first signs of a cold, exposure to known trigger, mild wheeze, tight chest and coughing especially night. Plan: Patient will add quick-relief medicine to preventative medicine. (3) Red means Danger Zone. Peak flow: below 50% of personal best. Symptoms: Asthma is getting worse quickly and medicine is not helping, breathing is hard and fast, nose opens widely when breathing, ribs showing when breathing, and patient cannot speak in full sentences. Plan: Patient will get help from a physician immediately. Continue albuterol HFA as needed. Symbicort HFA 80/4.5 mcg 2 puffs BID gives her thrush if used twice a day. Change Symbicort HFA to Breo Ellipta 100/25 mcg 1 inhalation daily. Gargle after use. The patient does not know how to accurately administer the inhalers. Today, the patient was shown how to take these medications. The proper technique for delivering these medications was instructed. The patient expressed a clear understanding and demonstrated back how to use these medications. Without the proper technique, the patient will not reap the benefits of these medications as the contents will not reach the lower airways as intended to be. Adherence to therapy is advocated. Nonadherence may lead to treatment failure, further progression of the condition, and other complications. Hospitals admissions are often the result of individuals not taking prescription medications accurately. Alternatively, greater adherence to medication regimens have shown to lower rates of hospitalization and decrease total medical costs in patients with chronic medical conditions. Advocated influenza vaccination annually and pneumonia vaccination COREY. Advocated weight loss through diet and exercise. Patient's ideal body weight according to height and gender is up to 110 lbs. Encouraged patient to adjust caloric intake to maintain/achieve ideal body weight, emphasizing on fruits, vegetables, whole grains, and fat-free or low-fat products. These include lean meats, poultry, fish, beans, eggs, and nuts and foods that are low in saturated fats, trans-fats, cholesterol, salt (sodium), and glycemic index. Stressed the importance of regular exercise up to the patient's capacity limits. In this case, we recommend 20 min daily walking, 2 days a week of resistance training. Patient to monitor BP daily and bring records to PCP for further management. Follow-up: 3 months, July 2024 Not available 07/30/2024 16:38:26 10/15/2024 10/15/2024 The patient has severe primary osteoarthritis both knees left slightly worse than right. Talked about treatment options today in detail she is going to continue with her diclofenac 75 mg b.i.d. with food she is trying to avoid total knee arthroplasty she would rather get by with conservative measures we have talked about this previously. Under sterile conditions at her request I injected both knee joints in the office today with 4 cc 0.5% bupivacaine and 20 mg of triamcinolone each. The patient tolerated procedures well. I will see her back again as needed we can do this again in 3 months if necessary she voiced understanding agrees above plan she will call for any further problems difficulties or questions. Not available 10/15/2024 09:41:10 01/14/2025 01/14/2025 The patient has severe primary osteoarthritis both knee joints as described. Under sterile conditions at her request I injected both knee joints in the office today with 4 cc 0.5% bupivacaine and 20 mg of Kenalog each. The patient tolerated the procedures well. She inquired about gel shots we can get her set up to do those next time we will see if we can get those approved. I will see her back in 2-3 months for gel shots if necessary. The patient also has pain in the left ring finger she had a sprain of the PIP joint several months ago. Continues to have some discomfort I have advised her to work on range of motion and gentle strengthening she will continue with diclofenac we can start her on a course of oral prednisone to see if that helps this may also help her trigger finger and her bilateral knee pain she will hold off on the diclofenac while she is on the prednisone. I will see her back in 6 weeks for a recheck of her left ring finger and her right middle finger. The patient has a right 3rd trigger finger we talked about treatment options she wanted proceed with cortisone therefore under sterile conditions I injected the patient's right 3rd finger into the flexor tendon sheath at the A1 jayce site with 2 cc of 0.5% bupivacaine and 10 mg of Kenalog. Patient tolerated procedure well. When I see her back in 6 weeks if she continues to have significant symptoms we could consider surgical intervention versus 1 more shot of cortisone we will see how she is doing we talked about the surgery in detail today. She voiced understanding and agrees with the above plan she will call for any further problems difficulties or questions. Hopefully prednisone followed by diclofenac will help this as well. Not available 01/14/2025 09:53:22 Plan of Treatment Reminders Order Date Submit Date Provider Last Modified By Organization Details Last Modified Time Details Appointments Any 2024 07:45A Maricel Robles MD Not available Not available Not available Any 5 2024 08:00A SHAKEEL Can Not available Not available Not available Follow Up 2024 09:00A Maricel Dewitt NP Not available Not available Not available Any 2024 08:45A Maricel Robles MD Not available Not available Not available Lab HbA1c (hemoglob in A1c), blood [address] (Lab), [address] [place] [address], [address], 01/28/2025 17:41:16 CMP, serum or plasma [address] (Lab), [address] [place] [address] [place], [address], 01/28/2025 17:41:17 TSH + free T4, serum [address] [place] [address] (Lab), [address] [place] [address], [address], 01/28/2025 17:41:17 T3, total, serum [address] [place] [address] (Lab), [address] [place] [address] [address], [place], [address], 01/28/2025 17:41:17 JESE (antinucl ear antibodie s) screen, serum [address] [place] [address] (Lab), [address] [place] [address], [place], [address], 01/28/2025 17:41:17 rf (rheumato id factor), serum [address] [place] [address] (Lab), [address] [place] [address], [place], [address], 01/28/2025 17:41:17 CBC w/ auto diff [address] [place] [address] (Lab), [address] [place] [address], [place], [address], 01/28/2025 17:41:17 vitamin D, 25-hydrox y, total, serum [address] [place] [address] (Lab), [address] [place] [address], [place], [address], 01/28/2025 17:41:17 lipid panel, serum [address] [place] [address] (Lab), [address] [place] [address], [id number], 01/28/2025 17:41:17 vitamin B12 + folate, serum or blood [address] [place] [address] (Lab), [address], [place], [address], 01/28/2025 17:41:17 Referral gynecolog ist referral - Please call patient to schedule an appointme nt. Thank you. 2024 025 CHAI Jaramilloff, [address], [address], [place], [address], Ph [phone] 02/03/2025 15:00:54 dermatolo gist referral - Please call patient to schedule an appointme nt. Thank you. 2024 025 CHAI Baker [employer], [address] [place], [address], 02/03/2025 15:25:18 Procedures injection /aspirati on joint/bur sa (PROC) 2024 025 [email or web address] In-Office Order, Internal Use Only DO Not Attach Compendium DO Not Attach Compendium, Do Not Delete/merge, [id number] 01/14/2025 09:41:49 injection /aspirati on joint/bur sa (PROC) 2024 025 [email or web address] In-Office Order, Internal Use Only DO Not Attach Compendium DO Not Attach Compendium, Do Not Delete/merge, [id number] 01/14/2025 09:32:59 injection /aspirati on joint/bur sa (PROC) 2023 024 [email or web address] In-Office Order, Internal Use Only DO Not Attach Compendium DO Not Attach Compendium, Do Not Delete/merge, [id number] 10/15/2024 09:15:31 injection /aspirati on joint/bur sa (PROC) - in office procedure , administe red by provider 2023 024 [email or web address] In-Office Order, Internal Use Only DO Not Attach Compendium DO Not Attach Compendium, Do Not Delete/merge, [id number] 07/09/2024 09:07:05 Surgeries None recorded. Imaging XR, hand 2024 025 [email or web address] [facility], [address] [place], [address], 01/14/2025 11:16:59 XR, knee 2023 024 [email or web address] [facility], [address] [place], [address], 07/09/2024 09:54:06 Medication Orders diclofena c sodium 75 mg tablet,de layed release 2024 025 [facility] #55812, [address] [place] [address], [id number], 01/28/2025 17:36:06 cyclobenz aprine 10 mg tablet 2024 025 [facility] #46469, [address] [place] [address], [id number], 01/28/2025 17:36:15 triamcino lone acetonide 0.1 % topical cream 2024 025 [facility] #70713, [address] [place] [address], [id number], 01/28/2025 17:36:13 dicyclomi ne 20 mg tablet 2024 025 [facility] #24534, [address], [place], [id number], 01/28/2025 17:36:12 losartan 100 mg-hydroc hlorothia zide 25 mg tablet 2024 025 [facility] #51224, [address], [place], [id number], 01/28/2025 17:36:13 amlodipin e 5 mg tablet 2024 025 [facility] #40378, [address], [place], [id number], 01/28/2025 17:36:07 ergocalci ferol (vitamin D2) 1,250 mcg (50,000 unit) capsule 2024 025 [facility] #83341, [address], [place], [id number], 01/28/2025 17:36:11 bupivacai ne HCl 0.5 % (5 mg/mL) injection solution [address] [facility] #33603, [address], [place], [id number], 01/28/2025 17:30:10 Kenalog 10 mg/mL suspensio n for injection [address] [facility] #39688, [address], [place], [id number], 01/28/2025 17:30:17 prednison e 10 mg tablets in a dose pack 2024 025 [email or web address] [facility] #66688, [address], [place], [id number], 01/28/2025 17:06:20 bupivacai ne HCl 0.5 % (5 mg/mL) injection solution [email or web address] [place] [address] [facility] #43864, [address], [place], [id number], 01/28/2025 17:30:10 Kenalog 10 mg/mL suspensio n for injection [address] [facility] #87983, [address], [place], [id number], 01/28/2025 17:30:17 bupivacai ne HCl 0.5 % (5 mg/mL) injection solution 2023 024 [email or web address] [facility] #12340, [address], [place], [id number], 01/28/2025 17:30:10 triamcino lone acetonide 40 mg/mL suspensio n for injection 2023 024 [facility] #37491, [address], [place], [id number], 01/28/2025 17:30:30 albuterol sulfate HFA 90 mcg/actua tion aerosol inhaler 2023 024 [email or web address] [facility] #75970, [address], [place], [id number], 07/25/2024 10:08:36 Breo Ellipta 100 mcg-25 mcg/dose powder for inhalatio n 2023 024 [email or web address] [facility] #29029, [address], [place], [id number], 10/15/2024 09:12:02 Marcaine (PF) 0.5 % (5 mg/mL) injection solution 2023 024 [email or web address] [facility] #39378, [address], [place], [id number], 07/25/2024 09:55:11 Kenalog 10 mg/mL suspensio n for injection 2023 024 [email or web address] [facility] #51959, [address], [place], [id number], 01/28/2025 17:30:17 cyclobenz aprine 10 mg tablet 2023 024 [email or web address] [facility] #70675, [address], [place], [id number], 07/09/2024 09:54:06 diclofena c sodium 75 mg tablet,de layed release 2023 024 [email or web address] [facility] #[id number], [place], [id number], 07/09/2024 09:54:06 Patient TargetsNo targets recorded. Patient Instructions Encounter Date Encounter Id Patient Instructions Last Modified By Organization Details Last Modified Time 07/25/2024 [id number] complete PFT w/ post bronchodilator spirometry* Not available 07/25/2024 10:08:30 Reason for Referral Stamp Classifier Referral for E ruption Please call patient to schedule an appointment. Thank you. 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 Thank you. Referring Physician: [facility], Encounter Date: 01/28/2025 Results Created Date Observation Date Name Description Value Unit Range Abnormal Flag Note LastModifiedBy Organization Detail LastModifiedTime 06/11/20 24 06/10/2024 compl ete PFT w/ post [facility] hodil ator bethanie metry * No observ ation record ed. [facility] ([facility]) [address] [place], [address], 06/11/2024 18:13:10 07/09/20 24 XR, knee No observ ation record ed. [email or web address] [facility] [address] [facility], [place], [address], 07/09/2024 09:26:22 12/27/19 25 12/27/2024 MAMMO , scree yessica, digit al, bilat eral No observ ation record ed. [email or web address] [facility] [address] [facility], [address], 12/30/2024 09:32:18 01/15/20 25 XR, hand No observ ation record ed. [email or web address] [facility] [address], [place], [address], 01/14/2025 09:53:56 Result Notes None recorded. Problems Name Problem SNOMED Code Status Onset Date Resolution Date Notes Provider Name and Address Organization Details Recorded Time Acquired bilateral pes planus 7729143124669 9109 Active 2021 Not Available [facility] 3 20:43:01 Hypertensi ve disorder 49511629 Active 2019 Not Available [facility] 3 20:43:01 Onychomyco sis 426877338 Active 2021 Not Available [facility] 3 20:43:01 Irritable bowel syndrome 89389165 Active 2022 SHAKEEL Jones [address], [place], [address] , [employer] [facility] 3 10:31:04 Seasonal allergy 484356137 Active 2022 SHAKEEL Jones [address], [place], [address] , [facility] 3 10:33:36 Trochanter ic bursitis of left hip 3538275551955 03 Active 2022 SHAKEEL Jones [address], [place], [address] , [employer] [facility] 3 10:48:43 Cobalamin deficiency 164974198 Active 2022 SHAKEEL Jones [address], [place], [address] , [employer] [facility] 3 11:24:44 Vitamin D deficiency 17915792 Active 2022 SHAKEEL Jones [address], [place], [address] , [facility] 3 11:25:10 Mild persistent asthma 935239989 Active 2022 Humza Robles MD [address], [address], [place], [address] , [facility] 3 16:48:51 Tendinitis of left rotator cuff 5027881949882 9101 Active 2022 Concepcion Gipson CNA null, [facility] 3 08:59:16 Hammer toe 217461822 Active 2022 Raul Iglesias DPM [address], [address], [place], [address] , [facility] 3 11:01:37 Bunion 660704049 Active 2022 Raul Iglesias DPM [address], [address], [place], [address] , [facility] 3 11:01:50 Spinal stenosis in cervical region 36447534 Active 2022 Tonie Persaud null, [facility] 3 09:09:09 Bilateral osteoarthr itis of knees 2128837151663 07 Active 2022 SHAKEEL Jones [address], [address], [place], [address] , [facility] 3 09:31:28 Osteoarthr itis of right hip joint 9365320421794 07 Active 2023 SHAKEEL Malagon [address], [address], [place], [address] , [facility] 4 11:12:31 Obstructiv e sleep apnea syndrome 27451668 Active 2023 Humza Robles MD [address], [address], [place], [address] , [facility] 4 11:21:37 Prediabete s 252438126 Active 2023 MARIA Bower [address], [address], [place], [address] , [facility] 4 10:59:50 Candidiasi s of mouth 71045560 Active 2023 ARNALDO Gómez [address], [place], [address] , [facility] 4 17:09:26 Pain of bilateral knee joints [id number] 04 Active 2023 Concepcion Hacketts, SENIOR LIVING SALES COUNSELOR null, [place] [facility] 4 09:13:45 Pain of bilateral hands 5280726648566 9109 Active 2024 Tonie Persaud null, [place] [facility] 5 09:24:18 Pain in finger of left hand 6358197417683 05 Active 2024 Tonie Schwarzs null, [facility] 5 09:39:30 Acquired trigger finger of right middle finger 9564068603551 05 Active 2024 Tonie Schwarzs null, [place] [facility] 5 09:40:23 Allergic contact dermatitis 077854888 Active 2024 ARNALDO Bey [address], [address], [place], [address] , [facility] 5 17:32:01 Chronic urticaria 02999487 Active 2024 ARNALDO Bey [address], [address], [place], [address] , [facility] 5 17:35:26 Chronic obstructiv e pulmonary disease 41946446 Active 2024 ARNALDO Bey [address], [address], [place], [address] , [facility] 5 17:38:35 Eruption 341783455 Active 2024 ARNALDO Bey [address], [place], [address] , [employer] 17:38:56 Notes:Medical History: Rhini tis to multiple environmental allergens IgE 156 IU/mL Eosinophils 60/uL AAT PiMM 111 mg% Ex-nicotine use Mild persistent asthma Mild restrictive airflow impairment Obesity with mod OSAHS, AHI = 21, on autoCPAP c/o [employer] Hypertension MICHAELLE IBS Vit D deficiency Left hip bursitis Bilateral knee OA Bilateral pes planus Onychomycosis Procedure History: [facility] 2005 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 Procedures Surgical History Date Name Laterality Status Provider Name and Address Organization Details Recorded Time 06/27/20 24 Nail Debridement completed Raul Iglesias DPM [address], [address], [place], [address], [employer] 06/27/2024 09:51:10 04/16/20 24 Nail Debridement completed Raul Iglesias DPM [address], [place], [address], [employer] 04/16/2024 09:30:41 10/31/20 23 Suture Removal completed Raul Iglesias DPM [address], [place], [address], [employer] 10/31/2023 15:59:50 07/11/20 23 Ortho - Cortisone Injection completed Howard Kamara MD [address], [place], [address], [employer] 07/11/2023 09:31:39 07/06/20 23 Nail Debridement completed Raul Iglesias DPM [address], [place], [address], [employer] 07/06/2023 11:00:55 04/11/20 23 Ortho - Cortisone Injection completed Howard Kamara MD [address], [place], [address], [employer] 04/11/2023 09:31:18 02/22/20 23 Ortho - Cortisone Injection completed Howard Kamara MD [address] [facility], [facility] [address], [place], [address], [facility] [employer] GROUP [facility] 02/21/2023 15:09:27 hysterectomy completed SHAKEEL Jones [address] [facility], [facility] [address], [place], [address], [facility] [employer] GROUP [facility] 02/08/2023 10:36:40 excision of bunion completed Concepcion Gipson CNA [facility] [employer] [facility] [place] 10/15/2024 09:13:15 Imaging Results Imaging Date Name Status LastModified by Organization Details LastModified Time 06/10/2024 complete PFT w/ post bronchodilator spirometry* completed [facility] ([facility]) [address] [place], [address], 06/11/2024 18:13:10 07/09/2024 XR, knee completed [email or web address] [facility] [address] [place], [address], 07/09/2024 09:26:22 12/27/2024 MAMMO, screening, digital, bilateral completed [email or web address] [facility] [address] [place], [address], 12/30/2024 09:32:18 01/14/2025 XR, hand completed [email or web address] [facility] [address] [place], [address], 01/14/2025 09:53:56 Procedure Notes None recorded. Medical Equipment None Reported. Allergies Allergen ID Allergen Name Allergen Category Reaction Reaction Severity Criticality Documentation Date Start Date Code Code System Note Provider Name and Address Organization Details Recorded Time 91415 Product containin g penicilli n (product) medicatio n itching rash Not available Not available Not available 01/11/2023 85847 8001 SNOMED Not Available [employer] 20:44:53 Medications Name Sig Start Date Stop Date Status Note LastModified by Organization Details LastModified Time speedy swab kit covid-19 01/28 completed Not Available Not Available Not Available losartan 50 mg tablet TAKE ONE TABLET DAILY 02/20 completed Not Available Not Available Not Available celecoxib 200 mg capsule Take 1 capsule every day by oral route. 04/18 completed Not Available Not Available Not Available cyclobenzap rine 10 mg tablet TAKE 1 TABLET BY MOUTH THREE TIMES DAILY NEEDED 2024 active Not Available Not Available Not Avai lable metformin 500 mg tablet Take 1 tablet twice a day by oral route for 90 days. 01/28 completed Not Available Not Available Not Available nystatin 100,000 unit/mL oral suspension Take 5 mL 4 times a day by oral route. 10/15 completed Not Available Not Available Not Available prednisone 10 mg tablet 01/28 completed Not Available Not Available Not Available ipratropium 0.5 mg-albutero l 3 mg (2.5 mg base)/3 mL nebulizatio n soln INHALE 1 VIAL VIA NEBULIZER FOUR TIMES A DAY NEEDED 04/18 completed Not Available Not Available Not Available nabumetone 750 mg tablet 04/18 completed Not Available Not Available Not Available albuterol sulfate 2.5 mg/3 mL (0.083 %) solution for nebulizatio n Inhale 3 mL every 6 hours by nebulizat ion route as needed. 2024 active Not Available Not Available Not Avai lable ammonium lactate 12 % lotion Apply to the affected areas daily 02/08 completed Not Available Not Available Not Available cetirizine 10 mg tablet TAKE ONE TABLET DAILY 02/21 completed Not Available Not Available Not Available azithromyci n 250 mg tablet TAKE 2 TABLETS BY MOUTH ON DAY ONE, THEN 1 TABLET DAILY FOR 4 DAYS 02/08 completed Not Available Not Available Not Available hydrocodone 5 mg-acetamin ophen 325 mg tablet Take 1 tablet every 8 hours by oral route as needed. 04/18 completed Not Available Not Available Not Available meloxicam 15 mg tablet Take 1 tablet every day by oral route. 04/18 completed Not Available Not Available Not Available bupivacaine HCl 0.5 % (5 mg/mL) injection solution Take 10 mg by injection route. 01/28 completed Not Available Not Available Not Available prednisone 20 mg tablet 3 po qday x 3 days then 2 po qday x 3 days then 1 po qday x 3 days then 1/2 tab po qday x 3 days then stop 04/18 completed Not Available Not Available Not Available acetaminoph en 300 mg-codeine 30 mg tablet TAKE 1 TABLET BY MOUTH EVERY FOUR TO SIX HOURS NEEDED AFTER 10/15 completed Not Available Not Available Not Available amlodipine 5 mg tablet Take 1 tablet every day by oral route. 2024 active Not Available Not Available Not Avai lable tramadol 50 mg tablet Take 1 tablet every 6-8 hours by oral route as needed. 04/18 completed Not Available Not Available Not Available acetaminoph en 500 mg tablet TAKE 1 TABLET BY MOUTH EVERY 6 HOURS NEEDED active Not Available Not Available No t Available triamcinolo ne acetonide 0.1 % topical cream APPLY A THIN LAYER TO THE AFFECTED AREA(S) BY TOPICAL ROUTE 2 TIMES PER DAY 2024 active Not Available Not Available Not Avai lable baclofen 20 mg tablet TAKE ONE TABLET 4 TIMES DAILY 03/03 completed Not Available Not Available Not Available prednisone 10 mg tablets in a dose pack Take 1 tab by mouth, 3 times a day for 3 daysTake 1 tab by mouth 2 times a day for 2 daysTake 1 tab by mouth once a day for 1 day 01/28 completed Not Available Not Available Not Available meloxicam 7.5 mg tablet 02/20 completed Not Available Not Available Not Available losartan 100 mg-hydrochl orothiazide 25 mg tablet Take 1 tablet every day by oral route. 2024 active Not Available Not Available Not Avai lable oxycodone-a cetaminophe n 5 mg-325 mg tablet 04/18 completed Not Available Not Available Not Available dicyclomine 20 mg tablet Take 1 tablet 4 times a day by oral route as needed for 90 days. 2024 active Not Available Not Available Not Avai lable Mapap (acetaminop hen) 500 mg capsule TAKE TWO TABLETS BY MOUTH EVERY EIGHT HOURS NEEDED 02/20 completed Not Available Not Available Not Available Kenalog 10 mg/mL suspension for injection Take 10 mg by injection route. 01/28 completed [facility]: [phone] Not Available Not Available Not Available triamcinolo ne acetonide 40 mg/mL suspension for injection Take 40 mg by injection route. 01/28 completed Not Available Not Available Not Available pantoprazol e 40 mg tablet,saad yed release 02/20 completed Not Available Not Available Not Available promethazin e 25 mg tablet 02/20 completed Not Available Not Available Not Available losartan 25 mg tablet 03/17 completed Not Available Not Available Not Available hydrochloro thiazide 12.5 mg capsule TAKE 1 CAPSULE BY MOUTH EVERY DAY 02/08 completed Not Available Not Available Not Available omeprazole 20 mg capsule,del ayed release 04/18 completed Not Available Not Available Not Available Banophen 25 mg capsule TAKE 1 CAPSULE BY MOUTH EVERY 6 HOURS NEEDED FOR ALLERGIES 02/08 completed Not Available Not Available Not Available diclofenac sodium 75 mg tablet,saad yed release Take 1 tablet twice a day by oral route. 2024 active Not Available Not Available Not Avai lable ergocalcife rol (vitamin D2) 1,250 mcg (50,000 unit) capsule 1 po qweek 2024 active Not Available Not Available Not Avai lable cefuroxime axetil 500 mg tablet 02/08 completed Not Available Not Available Not Available albuterol sulfate HFA 90 mcg/actuati on aerosol inhaler Inhale 1 puff every 4 hours by inhalatio n route as needed. 2024 active Not Available Not Available Not Avai lable losartan 100 mg tablet 02/08 completed Not Available Not Available Not Available fluticasone propionate 50 mcg/actuati on nasal spray,suspe nsion INSTILL ONE (1) SPRAY IN EACH NOSTRIL DAILY active Not Available Not Available No t Available Premarin 0.625 mg/gram vaginal cream INSERT 0.5 GRAMS INTO THE VAGINA TWICE A WEEK 07/06 completed Not Available Not Available Not Available Marcaine (PF) 0.5 % (5 mg/mL) injection solution Take 40 mg by injection route. 07/25 completed Not Available Not Available Not Available lactulose 10 gram/15 mL oral solution TAKE 15-30 ML BY MOUTH DAILY *MAX DAILY DOSE: 60ML* active Not Available Not Available No t Available calcium 600 mg (as carbonate)- vitamin D3 10 mcg (400 unit) tablet TAKE ONE TABLET TWICE DAILY 02/08 completed Not Available Not Available Not Available Symbicort 160 mcg-4.5 mcg/actuati on HFA aerosol inhaler bid 02/20 completed Not Available Not Available Not Available Symbicort 80 mcg-4.5 mcg/actuati on HFA aerosol inhaler INHALE TWO (2) PUFFS BY MOUTH TWICE A DAY active Not Available Not Available No t Available ropivacaine (PF) 5 mg/mL (0.5 %) injection solution Take 20 mg by injection route. 04/18 completed [facility] [phone] Not Available Not Available Not Available Aerochamber Plus Flow-Vu,Med ium Mask 02/20 completed Not Available Not Available Not Available Aerochamber Plus Flow-Vu,Lar ge Mask 02/20 completed Not Available Not Available Not Available Breo Ellipta 100 mcg-25 mcg/dose powder for inhalation Inhale 1 puff every day by inhalatio n route. 10/15 completed Not Available Not Available Not Available Breo Ellipta 200 mcg-25 mcg/dose powder for inhalation INHALE 1 PUFF ONCE DAILY 03/17 completed Not Available Not Available Not Available Spiriva Respimat 1.25 mcg/actuati on solution for inhalation 07/13 completed Not Available Not Available Not Available Adult One Daily Multivitami n 0.4 mg tablet TAKE ONE TABLET DAILY 02/20 completed Not Available Not Available Not Available Lidocaine Pain Relief 4 % topical patch Apply 1 patch every day by topical route as needed. 04/03 completed Not Available Not Available Not Available Fluzone Quad (PF) 60 mcg (15 mcg x 4)/0.5 mL IM syringe IMMUN 03/03 completed Not Available Not Available Not Available Vitals Date Recorded Body height Body mass index (BMI) Body weight Provider Name and Address Organization Details Last Updated DateTime 07/09/2024 165.1 cm 39.9 kg/m2 942816.17 g Concepcion Gipson CNA [place] [employer] [facility] 07/09/2024 09:04:22 Date Recorded Body height Body mass index (BMI) Body weight Body temperature Heart rate Systolic blood pressure Diastolic blood pressure Provider Name and Address Organization Details Last Updated DateTime 165.1 cm 39.8 kg/m2 760554. 58 g 98.2 [degF] 82 /min 126 mm[Hg] 70 mm[Hg] Tyson Rawls CMA [facility] [employer] 4 09:58:03 Date Recorded Oxygen saturation Oxygen saturation in Arterial blood by Pulse oximetry Heart rate Respiratory rate Provider Name and Address Organization Details Last Updated DateTime 07/25/2024 95 % 95 % 82 /min 15 /min Humza Robles MD [address] [place] [address], [address], [place] [employer] [facility] 4 10:14:41 Date Recorded Body height Body mass index (BMI) Body weight Provider Name and Address Organization Details Last Updated DateTime 10/15/2024 165.1 cm 38.9 kg/m2 967109.61 g Concepcion Gipson CNA [place] [employer] [facility] 10/15/2024 09:11:10 Date Recorded Body height Body mass index (BMI) Body weight Provider Name and Address Organization Details Last Updated DateTime 01/14/2025 165.1 cm 38.4 kg/m2 169957.84 g Tonie Persaud [place] [employer] [facility] 01/14/2025 09:23:25 Date Recorded Body height Body mass index (BMI) Body weight Body temperature Heart rate Oxygen saturation Oxygen saturation in Arterial blood by Pulse oximetry Pain severity - 0-10 verbal numeric rating [Score] - Reported Systolic blood pressure Diastolic blood pressure Provider Name and Address Organization Details Last Updated DateTime 5 165.1 cm 38.3 kg/m2 720412. 25 g 97.4 [degF] 80 /min 95 % 95 % 0 138 mm[Hg] 88 mm[Hg] Mere Morgan MA [facility] [employer] [facility] 5 17:04:52 Social History Question Answer Notes LastModified by Organizat ion Details LastModified Time Tobacco Smoking Status Former Smoker [facility] 10/11/2023 11:42:33 What Is Your Level Of Alcohol Consumption? Occasional Information not available 10/15/2024 What Is Your Level Of Caffeine Consumption? Occasional [email or web address] Information not available 02/08/2023 In The 14 Days Before Symptom Onset, Have You Had Close Contact With A Laboratory-confir med COVID-19 While That Case Was Ill? No [email or web address] Information not available 10/11/2023 In The 14 Days Before Symptom Onset, Have You Had Close Contact With A Person Who Is Under Investigation For COVID-19 While That Person Was Ill? No [email or web address] Information not available 10/11/2023 Are You Currently Employed? No [email or web address] Information not available 10/11/2023 What Type Of Diet Are You Following? REGULAR Information not available 02/08/2023 Do You Have An Electrostatic Air Filter? No [email or web address] Information not available 10/11/2023 What Is Your Occupation? Retired [email or web address] Information not available 10/11/2023 Have There Been Any Changes To Your Family Or Social Situation? No Information no t available 01/28/2025 When Did You Quit Smoking? 6-10yearssince [email or web address] Information not available 10/15/2024 Do You Have A Humidifier? Yes [email or web address] Information not available 10/11/2023 Do You Use Insect Repellent Routinely? No Information not available 01/28/2025 Do You Have Moisture Problems In Your Home? No [email or web address] Information not available 10/11/2023 What Was The Date Of Your Most Recent Tobacco Screening? 01/28/2025 Information not available 01/28/2025 Have You Ever Been Counseled For Unhealthy Alcohol Use? No [email or web address] Information not available 10/11/2023 Do You Have Any Pets? No [email or web address] Information not available 10/11/2023 What Is Your Relationship Status? Information not available 01/28/2025 Do You Use Your Seat Belt Or Car Seat Routinely? Yes [email or web address] Information not available 10/11/2023 Do You Have Smoke And Carbon Monoxide Detectors In Your Home? Yes [email or web address] Information not available 10/11/2023 Are You Passively Exposed To Smoke? No [email or web address] Information no t available 10/11/2023 Are There Any Smokers In Your House? No Information not available 01/28/2025 Do You Participate In Social Media? Yes Information not available 01/28/2025 Do You Feel Stressed (tense, Restless, Nervous, Or Anxious, Or Unable To Sleep At Night)? [id number] Information not available 01/28/2025 Do You Use Any Illicit Or Recreational Drugs? No Information not available 10/11/2023 Do You Use Sunscreen Routinely? No Information not available 10/11/2023 Has Tobacco Cessation Counseling Been Provided? No [email or web address] Information not available 10/11/2023 Have You Recently Traveled Abroad? No [email or web address] Information not available 10/11/2023 Do You Have Any Dietary Restrictions? No [email or web address] Information not available 10/11/2023 Do You Or Have You Ever Used Any Other Forms Of Tobacco Or Nicotine? No [email or web address] Information not available 10/11/2023 Sex: Unknown Functional Status Question Answer Note LastModified by Organization D etails LastModified Time What is your exercise level? Heavy [email or web address] Information not available 02/08/2023 Mental Status None recorded. Family History Relationship Description Onset Age of this Age Resolved Age Notes LastModified by Organization Details LastModified Time Mother Diabetes mellitus [id number] Not available 01/11/2023 20:41:25 Mother Hypertensive disorder [id number] Not available 01/11/2023 20:41:25 Mother Cerebrovascu lar accident [email or web address] Not available 0 07/25/2024 09:47:22 Father Cerebrovascu lar accident [email or web address] Not available 0 07/25/2024 09:47:22 Father Heart disease [id number] Not available 01/11/2023 20:41:25 Sister Diabetes mellitus [email or web address] Not available 2022 09:34:44 Unspecified Relation Hypertensive disorder GRANDF ATHER [email or web address] Not available 07/06/2023 09:35:10 Unspecified Relation Family history of malignant neoplasm GRANDF ATHER Not available 07/25/2024 09:47:22 Medical History Condition Response ARTHRITIS Y ALLERGIES/HAYFEVER Y USE OF NSAIDS Y BACK / NECK PROBLEMS Y HEARTBURN / REFLUX Y HYPERTENSION Y Gynecological History Statement/Question Response How many live births 1 Date of Last Colonoscopy Date of LMP Most Recent Bone Density Current Control Method Hysterectom y Most Recent Mammogram Obstetrics History GPAL:G 1 P 1 0 0 1 Type Value Multiple Births 0 Full Term 1 Induced 0 Spontaneous 0 Premature 0 Living 1 Ectopics 0 Total 1 Immunizations Vaccine Type Date Status Note Provider Nam e and Address Organization Details Recorded Time Influenza, split virus, quadrivalent, preservative 9 completed Not Available [employer] 01/11/2023 20:44:51 Tdap 3 completed SHAKEEL Jones [address] [place] [address], [address], [facility] [employer] [facility] 03/28/2023 12:33:07 Past Encounters Encounter ID Performer Location Encounter Start Date Encounter Closed Date Diagnosis/Indication Diagnosis SNOMED-CT Code Diagnosis ICD10 Code Diagnosis Note [id number] [facility] [place] [address] [facility] [facility] [address] [place] [address] 07/14/2022 00:00:00 07/19/2022 11:40:02 [id number] SHAKEEL Jones [facility] Primary Care [facility] [address] [facility] [address] [place] [address] 02/08/2023 09:54:45 02/08/2023 11:15:05 Bilateral arthritis of knees 7666524420 148423 M13.861 M13.862 Continue diclofenac , cyclobenza julito, and acetaminop hen.She has been seeing ortho getting cortisone injections but states they are not helping. She would like to get establishe d with new ortho. Will send referral and I advised her to discuss with them if she is a candidate for visco supplement ation. Hypertensive disorder 38 044888 I10 Stable. Continue amlodipine and Losartan/H CTZ. Irritable bowel syndrome 55293242 K58.9 Daily bowel movements, states she has not had diarrhea or constipati on, has been well controlled . Chronic ob structive pulmonary disease 00678805 J44.9 She used to be a social smoker for about 15-20 years; smoked about 2-3 cigarettes a day. She stopped 5 years ago. She uses inhalers regularly, still notices some wheezing. States it has been awhile since she has been evaluated by pulmonolog y, will send new referral today. Seasonal allergy 6809226 04 J30.2 Pain of le ft shoulder joint 1279734634 8769346 M25.512 Most likely bursitis. Pain exacerbate d with internal rotation/a bduction.E ncouraged her to work on home exercies. Also will try course of prednisone .Continue f/u with ortho if no improvemen t. Trochanter ic bursitis of left hip 5498287114 01456 M70.62 Advised she work on home stretches. [id number] Howard Kamara MD [facility] [place] [address] [place] [address] 02/21/2023 13:57:48 02/21/2023 15:30:17 Pain of bilateral knee joints 0054610081 06383 M25.561 Osteoarthr itis of right knee joint 8073915432 75697 M17.11 Osteoarthr itis of left knee joint 7664051307 20120 M17.12 [id number] Humza Robles MD [facility] [address] [address] 02/28/2023 09:48:32 03/01/2023 08:26:43 Dyspnea on exertion 22224921 R06.09 R05.9 T78.40XA D89.9 [id number] Howard Kamara MD [facility] [place] [address] [place] [address] 03/21/2023 14:12:12 03/21/2023 14:36:05 Osteoarthritis of right knee joint 6433141145 89477 M17.11 Pain of bi lateral knee joints 4189428182 14590 M25.561 Osteoarthr itis of left knee joint 1445435895 96262 M17.12 [id number] SHAKEEL Jones [facility] Primary [facility] [address] [facility] [address] [place] [address] 03/28/2023 10:25:18 03/28/2023 11:43:12 Adult health examination 227849376 Z00.00 Will get routine labs today. Covid vaccines- up to date on boostersFl u vaccine- recommende d each fallTetanu s vaccine- will update todayShing les vaccine- up to date Pap- 3 years ago, wnl; no ovariesCol on2021 wnlMammogr am- 2021 wnl; due in the fall Recommende d routine eye exams (wears glasses) and dental cleanings. Hypertensive disorder 38 710680 I10 Stable. Continue amlodipine and Losartan/H CTZ. Pain of le ft shoulder joint 5564795162 1000441 M25.512 Already establishe d with orthopedic s, needs referral for shoulder. Acquired b ilateral pes planus 9133046258 4230588 M21.41 M21.42 Struggles with bilateral foot pain.Previ ously seeing Dr. Wallace, would like referral to continue care with Dr. Iglesias. 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 Needs new referral to ophthalmol ogist. Diabetes m ellitus screening 672440254 Z13.1 Hyperlipid emia screening 518688476 Z13.220 Cobalamin deficiency 190 817464 E53.8 Vitamin D deficiency 347 07393 E55.9 Currently 50,000 units weekly. [id number] Howard Kamara MD [facility] [address] [address] 04/11/2023 09:15:15 04/11/2023 09:38:08 Osteoarthritis of right knee joint 9807252498 91077 M17.11 Osteoarthr itis of left knee joint 5847482899 74846 M17.12 Pain of bi lateral knee joints 3082317715 23888 M25.561 Pain of le ft shoulder joint 3354283954 3504686 M25.512 Tendinitis of left rotator cuff 2342616887 9661840 M67.814 [id number] Humza Robles MD [facility] [place] [address] [facility] [address] [place] [address] 04/18/2023 16:11:06 04/19/2023 08:44:14 Mild persistent asthma 301806863 J45.30 [id number] Howard Kamara MD [facility] [address] 05/09/2023 08:55:07 05/09/2023 09:54:41 Osteoarthritis of left knee joint [id number] 61470 M17.12 Osteoarthr itis of right knee joint 6724683084 54913 M17.11 Pain of bi lateral knee joints 4651229653 29500 M25.561 Pain of le ft shoulder joint 2549062105 3129052 M25.512 Tendinitis of left rotator cuff 8849170513 9305273 M67.814 [id number] Raul Iglesias DPM [facility] [place] [address] [place] [address] 07/06/2023 09:21:02 07/06/2023 11:23:29 Dystrophia unguium 08431194 L60.3 thickened toenail secondary to hammertoe deformitie sDebrided without incidentEd ucated on and options for hammertoes . Bunion 816402086 M21.61 1 M21.612 reviewed treatment optionsRec ommend wide shoe gearFollow -up for follow-up on x-rays and possible surgical correction Hammer toe 780829537 M20 .41 M20.42 as above [id number] Howard Kamara MD [address] [address] 07/11/2023 08:53:54 07/11/2023 09:30:55 Osteoarthritis of left knee joint 0039531440 42040 M17.12 Osteoarthr itis of right knee joint 0765797916 48050 M17.11 Pain of bi lateral knee joints 2640240735 80051 M25.561 Pain of le ft shoulder joint 6051576104 3528401 M25.512 Tendinitis of left rotator cuff 1558909710 6483830 M67.548 [id number] Howard Kamara MD [address] [address] 08/08/2023 08:38:37 08/08/2023 09:14:01 Tendinitis of left rotator cuff 0045322355 5088272 M67.814 Spinal nilay nosis in cervical region 08226470 M48.02 [id number] Raul Iglesias DPM [facility] [place] [address], [address] [place] [address] 08/15/2023 09:22:55 08/15/2023 10:37:38 Bunion 717791516 M21.611 M21.612 reviewed treatment optionsRec ommend wide shoe gearReview ed offloading optionsdis corinna Chevron osteotomy with Triston osteotomyf ollow-up in 1 month for surgical clearance Hammer toe 158141947 M20 .41 M20.42 as abovearthr oplasty 2nd 3rd and 4th toes [id number] SHAKEEL Malagon [facility] [place] [address] [place] [address] 09/05/2023 08:55:03 09/05/2023 09:46:53 Tendinitis of left rotator cuff 6254061390 5270984 M67.814 Spinal nilay nosis in cervical region 81028207 M48.02 [id number] SHAKEEL Jones [facility] [address] [facility] [address] [place] [address] 09/11/2023 08:29:43 09/11/2023 09:38:16 Pain of left shoulder joint 8359436082 4532358 M25.512 Already establishe d with [facility], needs new referral for shoulder.W ill be starting PT in 2 weeks with [facility].Sh e has tried celebrex and diclofenac and it has not helped.Ramy l do course of prednisone , pt. requested pain medication - advised we can give temporary course but will not be long time.Will continue care with orthopedic s. Bilateral osteoarthritis of knees 4104918267 23406 M17.0 Needs new referral as Dr. Kamara has left practice.W ill also start PT. [id number] Raul Iglesias DPM [facility] [place] [address] [facility], [address] [place] [address] 09/28/2023 08:36:15 09/28/2023 09:30:54 Bunion 510941738 M21.611 M21.612 discuss treatment options in detailObta in surgical clearancep lanned surgery October right foot bunionecto my with distal Chevron osteotomy with Triston osteotomyf ollow-up in 1 month for surgical clearance Hammer toe 270623677 M20 .41 M20.42 as aboveplan right foot arthroplas ty 2nd, 3rd, and 4th toespatien t denies surgery of the 5th, nonpainful Pain in right foot 24723 87437 63054 M79.671 as above [id number] Angus Stallings MD [facility] [place] [address] [place] [address] 10/11/2023 11:41:10 10/11/2023 12:24:57 Pain of left shoulder joint 7641118173 1801123 M25.409 [id number] Raul Iglesias DPM [facility] [address], [facility] [address] [place] [address] 10/17/2023 11:36:38 10/18/2023 16:51:08 Postoperative care 866358331 Z48.89 status post 3 daysright foot bunionecto my with hammertoe arthroplas ty of the 2nd, 3rd, 4th with K-wireskee p incisions clean and dryApply Betadine to the distal pin sites dailyConti nue postop shoeMinima l weight-tracey ring to the bathroomel evation when at rest with icing behind the kneemonito r for signs of infection if present seek medical attention immediatel yFollow-up in 1 week [id number] Raul Iglesias DPM [facility] [address], [facility] 4 [place] [address] 10/24/2023 09:11:02 10/24/2023 11:45:56 Postoperative care 945692333 Z48.89 status post 10 daysright foot bunionecto my with hammertoe arthroplas ty of the 2nd, 3rd, 4th with K-wireskee p incisions clean and dryApply Betadine to the distal pin sites dailyConti nue postop shoeMinima l weight-tracey ring to the bathroomel evation when at rest with icing behind the kneemonito r for signs of infection if present seek medical attention immediatel yFollow-up in 1 week suture removal [id number] Raul Iglesias DPM [facility] [place] [address] [facility], [facility] 4 [place] [address] 10/31/2023 14:37:04 11/01/2023 11:52:11 Postoperative visit 272023215 Z09 status post 2.5incisio ns cleaned with ChloraPrep Steri-Stri ps appliedcon tinue postop shoeminima l weight-tracey ring pressure to heelfollow -up in 3 weeks Bunion 374176256 M21.61 1 M21.612 discuss treatment options in detailObta in surgical clearancep lanned surgery October right foot bunionecto my with distal Chevron osteotomy with Triston osteotomyf ollow-up in 1 month for surgical clearance Acute post operative pain 4785811070 32982 G89.18 secondary to grandson stepping on footordere d x-rays [id number] SHAKEEL Malagon [facility] [place] [address] [place] [address] 11/21/2023 10:18:06 11/21/2023 11:01:07 Bilateral osteoarthritis of knees 8659362114 39231 M17.0 Pain of le ft shoulder joint 6815170165 6151424 M25.266 [id number] Raul Iglesias DPM [facility] [place] [address] [facility], [address] [address] 11/21/2023 10:44:21 12/26/2023 14:15:12 Postoperative visit 701832502 Z09 status post 5, Pin removal today without incidentin cisions cleaned with ChloraPrep Steri-Stri ps appliedcon tinue postop shoeminima l weight-tracey ring pressure to heelfollow -up in 3 weeks Bunion 396692104 M21.61 1 M21.612 discuss treatment options in detailObta in surgical clearancep lanned surgery [place] 1stPlan right foot bunionecto my with distal Chevron osteotomy with Triston osteotomyf ollow-up in 1 month for surgical clearance [id number] Raul Iglesias DPM [facility] [place] [address], [address] [place] [address] 12/26/2023 08:21:03 12/28/2023 09:44:24 Postoperative visit 166931833 Z09 may return to normal shoe gearslow return to normal activities elevate feet when restingwea r supportive wide athletic shoe gear dailyxr reviewed w patientflo w up as needed [id number] SHAKEEL Malagon [facility] [place] [address] [place] [address] 02/27/2024 09:55:11 02/27/2024 10:44:54 Bilateral osteoarthritis of knees 4638795587 18155 M17.0 Pain of bi lateral knee joints 3277439811 77736 M25.561 Pain in ri ght hip joint 2932138481 35695 M25.551 Osteoarthr itis of right hip joint 6721629135 23651 M16.11 [id number] ARNALDO Gómez [facility] [address] [facility] [address] [place] [address] 04/04/2024 13:57:56 04/04/2024 15:19:14 Adult health examination 698392609 Z00.00 Encouraged fresh fruits and veggies-me d intake bothIncrea se daily water intake-dri nks water all dayEncoura ge 30 mins of daily exercise-e xercises 3 times/week Colonoscop y-not neededWell woman exams-mamm o up to date, does not do pap smearDEXA- no hxLDCT-not a smoker Hyperlipid emia screening 543845301 Z13.220 Diabetes m ellitus screening 203693390 Z13.1 Thyroid di sorder screening 922098444 Z13.29 Bilateral arthritis of knees 5569857407 796703 M13.861 Anemia screening 6970330 07 Z13.0 [id number] SHAKEEL Malagon [facility] [place] [address] [place] [address] 04/12/2024 10:08:05 04/12/2024 10:30:53 Pain in right hip joint 4731567700 61216 M25.551 Osteoarthr itis of right hip joint 3171421507 94540 M16.11 Bilateral osteoarthritis of knees 8642669858 38447 M17.0 Pain of bi lateral knee joints 6727333006 30034 M25.690 [id number] Raul Iglesias DPM [facility] [address], [facility] [address] [place] [address] 04/16/2024 08:57:37 04/17/2024 15:36:06 Postoperative visit 812264853 Z09 patient doing welltoes stable good positionfo llow-up as needed, continue normal shoe Dystrophia unguium 71825 009 L60.3 thickened toenail secondary to hammertoe deformitie sDebrided without incidentEd ucated on and options for hammertoes . [id number] Humza Robles MD [facility] [place] [address] [place] [address] 04/18/2024 10:38:45 04/19/2024 08:49:02 Mild persistent asthma 442168533 J45.30 Obstructiv e sleep apnea syndrome 94151603 G47.33 [id number] Raul Iglesias DPM [facility] [address], [address] [address] 06/27/2024 09:13:24 06/27/2024 15:40:09 Dystrophia unguium 30119284 L60.3 thickened toenail secondary to hammertoe deformitie sDebrided without incidentEd ucated on and options for hammertoes . Unable to cut own toenails 784313970 Z74.1 [id number] ARNALDO Gómez [facility] [address] [facility] [address] [place] [address] 07/02/2024 09:45:12 07/02/2024 10:45:15 Prediabetes 130725641 R73.03 trial metformin Hypertensive disorder 38 213854 I10 Mild persi stent asthma 397807495 J45.30 [id number] SHAKEEL Malagon [facility] [address] [address] 07/09/2024 08:58:25 07/09/2024 09:48:40 Bilateral osteoarthritis of knees 6131048733 07775 M17.0 Pain of bi lateral knee joints 8893863156 27797 M25.561 Osteoarthr itis of right hip joint 6209904015 65670 M16.11 [id number] Humza Robles MD [facility] [place] [address] [facility] [address] [place] [address] 07/25/2024 09:46:19 07/26/2024 11:39:54 Mild persistent asthma 721539733 J45.30 Obstructiv e sleep apnea syndrome 98210870 G47.33 [id number] SHAKEEL Malagon [facility] [address] [address] 10/15/2024 08:55:19 10/15/2024 10:11:37 Bilateral osteoarthritis of knees 6656178917 12940 M17.0 Pain of bi lateral knee joints 0045211575 16916 M25.975 [id number] SHAKEEL Malagon [facility] [address] [address] 01/14/2025 09:06:46 01/14/2025 10:03:34 Bilateral osteoarthritis of knees 1258773483 24166 M17.0 Pain of bi lateral knee joints 3151791827 37408 M25.561 Pain of bi lateral hands 6015243497 6002645 M79.641 M79.642 Pain in fi nger of left hand 1972769658 07945 M79.645 left 4th finger Acquired t well tender finger of right middle finger 1213544997 94205 M65.272 [id number] ARNALDO Bey [facility] [address] [facility] [address] [place] [address] 01/28/2025 16:56:11 01/28/2025 17:41:55 Bilateral osteoarthritis of knees 8647025445 82929 M17.0 Patient is doing well on current medication s.Will refill meds as listed below. Hypertensive disorder 38 748953 I10 138/88Disc ussed DASH diet and routine exercise.W ill refill meds and check labs as listed below. Chronic ob structive pulmonary disease 97998857 J44.9 Doing well at this time. Irritable bowel syndrome 84895494 K58.9 Doing well on current medication s, will refill as needed. Vitamin D deficiency 347 07684 E55.9 Will refill meds as needed. Allergic c ontact dermatitis 963647802 L23.9 Adult heal th examination 189385758 Z00.00 Discussed medication compliance and routine follow up.Discuss ed healthy diet and routine exercise.Alex telleziewed vaccine records and made recommenda tions as needed.Enc ouraged annual eye and dental exams, as well as twice yearly dental cleanings. Will check screening labs as listed below. Eruption 602236975 R21 Patient requesting referral to dermatolog y due to chronic issues with skin eruption when her skin is touched. Body mass index 30+ - obesity 794507069 Z68.38 Weight: 230 poundsBMI: 38.3 Cobalamin deficiency 190 407350 E53.8 Will check labs as listed below. Prediabetes 399250413 R7 3.03 Will check labs as listed below.Regina ent d/c Metformin one month ago due to lower abdominal pain, has been working on diet and exercise. Thyroid di sorder screening 227421826 Z13.29 Will check labs as listed below. Screening for cardiovascular system disease 386933307 Z13.6 Will check labs as listed below. Family his tory of Autoimmune disease 221678523 Z83.2 Will check labs as listed below. History of gynecological disorder 890979582 Z87.42 Health Concerns Section Related Observation LastModified by Organization Detai ls LastModified Time None Recorded Concern Status LastModified by Organization Details LastModified Time None Recorded Advance Directives Directive None Recorded Payers Encounter Date Sequence Insurance Name Policy Number Policy Suggs Covered Member ID Suggs Member ID Guarantor Name 07/09/2024 1 [facility] (MEDICAID REPLACEMENT - HMO) [id number] Claudia Iverson [id number] Claudia Iverson 07/25/2024 1 [facility] (MEDICAID REPLACEMENT - O) [id number] Claudia Iverson [id number] Claudia Iverson 10/15/2024 1 [facility] (MEDICAID REPLACEMENT - O) [id number] Claudia Iverson [id number] Claudia Iverson 01/14/2025 1 [facility] (MEDICAID REPLACEMENT - O) [id number] Claudia Iverson [id number] Claudia Iverson 01/28/2025 1 [facility] (MEDICAID REPLACEMENT - [facility] [id number] Claudia Iverson [id number] Claudia Iverson Notes Date Note Type Note Provider Name and Address Organization Details Recorded Time 07/09/2024 text/html Patient returns requesting bilateral knee injections it has been more than a year since her last x-rays about a year and a half ago she was known to have moderately severe primary osteoarthritis in both knees. She comes in every few months for cortisone it has been 3 months since her last injections. They do work well for her she is trying to avoid total knee arthroplasty denies any new trauma or injury to either knee. She uses diclofenac and cyclobenzaprine to treat her knee and hip pain she recently underwent a intra-articular injection under fluoroscopy and she is quite pleased with the results from that she is still doing well. She would like both knees injected again today denies any effusion or swelling no erythema heat or other signs of infection. SHAKEEL Malagon [address] [place] [address], [facility] [address], [place], [address], [place] [facility] 07/09/2024 09:27:35 07/25/2024 text/html Primary care/Ref erring provider: SHAKEEL Jones [phone] Patient is here to go over her asthma management. Initial development of shortness of breath: 2015Duration of shortness of breath: 9 yearsCondition of shortness of breath: stableTiming of shortness of breath: night timeFrequency: up to 2 times a dayLimits activities: yesAggravating factors: walking, lying flat, second hand smokeAlleviating factors: rest Modified [employer] [place] (mMRC) Dyspnea Scale - Grade 2Grade 0 I only get breathless with strenuous exercise .Grade 1 I get short of breath when hurrying on the level or walking up a slight hill .Grade 2 I walk slower than people of the same age on the level because of breathlessness or have to stop for breath when walking at my own pace on the level .Grade 3 I stop for breath after walking about 100 yards or after a few minutes on the level .Grade 4 I am too breathless to leave the house or I am breathless when dressing . Patient's personal best peak flow today remains at 330 L/min. Treatment history: Albuterol nebs as needed since lbuterol HFA as needed since 2018 Symbicort HFA 160/4.5 mcg 2 puffs daily 2019 -ymbicort HFA 80/4.5 mcg 2 puffs daily since 2022 Other symptoms:Drooling: noDysarthria: noNeck pain: noOdynophagia: noDysphagia: noWeak mastication: noFacial weakness: noNasal speech: noProtruding tongue: noProductive cough: whiteWheezing: yesChest tightness: yesOrthopnea: noFrequent throat clearing or swallowing: noPalpitations: noHeartburn: noEdema: no Environmental exposures:Nicotine smoke: 1/2 ppd [phone] =18.5 pack yearsPaint: noDye: noDust mites: yesMold: noDamp basement: noWood burning stove: noAnimal dander: noCockroaches: noPollen: yesArsenic: noAsbestos: noBeryllium: noCadmium: noChromium: noCoal smoke: noDiesel fumes: noNickel: noSilica: noSoot: no At home since 04/18/24, the patient uses a ResMed AirSense 10 autoset unit with heated humidification. The patient does not need the ramp to start low and go up slowly on the pressure. There is some xerostomia in a.m. There is no hose/mask condensation with water. The patient wears a Respironics medium nasal mask without chin strap. There is no claustrophobia, no nostril/nose bridge irritation, no facial rash, no facial numbness, no nosebleeding. The patient feels more refreshed upon waking and daytime alertness is improved. Energy levels are sustained for the remainder of the day. EPWORTH SLEEPINESS SCALE (ESS) CHANCE OF DOZING SCORE0 = would never doze1 = slight chance of dozing2 = moderate chance of dozing3 = high chance of dozing SITUATION AND CHANCE OF DOZINGSitting and reading - 2Watching television - 2Sitting inactive in a public place (e.g. a theater or meeting) - 0As a passenger in a car for an hour without a break - 0Lying down to rest in the afternoon when circumstances permit - 3Sitting and talking to someone - 0Sitting quietly after lunch without alcohol - 1In a car, while stopped for a few minutes in the traffic - 0TOTAL SCORE 8Subjectively, patient has a slight chance of dozing. Humza Robles MD [address] [place] [address], [facility] [address], [place], [address], [facility] 07/30/2024 16:39:21 10/15/2024 text/html The patient retu rns with bilateral knee pain she comes in every few months for cortisone injections they gave her some relief not great but help her get by recently her pain has been quite significant about a 6 on a scale of 1-10 states she has a hard time getting around she ran out of her diclofenac which really caused significant pain to flare up she finally got a refill and this has helped somewhat also. She would like both knees injected again today she has trouble standing or walking for long periods aching pain with pretty severe osteoarthritis both knees which is moderately severe in nature with tricompartmental changes. She is essentially orfl-lf-fndz in the medial compartment of the left knee now sliver of joint space remaining in the right medial compartment. She would like cortisone injections both knees today help get her through the holidays. The patellofemoral articulations also show severe narrowing with only minimal joint space remaining on the lateral facets. She does have mild varus deformities both knees. New past medical history sheet was reviewed and signed on the intake sheet of today's date drug allergies current medications family social history previous surgical history 10 point review of systems was reviewed and discussed in detail today with the patient. SHAKEEL Malagon [address], [address], [place], [address], [employer] 10/15/2024 09:41:33 01/14/2025 text/html The patient retu rns with 2 new problems she has pain in her left ring finger she jammed it a few months ago and has some aching pain in that finger at the PIP joint. Denies any loss of function loss of motion just has aching pain if she overuses it. States the joint feels little larger than the rest of the joints of her fingers in his little bit tender. It aggravates her throughout the day she is wondering what can be done she wants to get x-rays of that finger it has been several months now she did it late last year. She also has pain in the right middle finger this gets stuck with flexion and extension. She demonstrates popping and catching through flexion extension and has tenderness in the flexor tendon sheath at the A1 jayce site she has a right 3rd trigger finger this has been ongoing for a few months now as well despite conservative measures her symptoms continue. Denies any trauma or injury to that finger. The patient also has bilateral knee pain she comes in every few months for cortisone injections. She takes diclofenac she continues to have significant pain. She has essentially nwdk-ax-tssy changes in medial compartment of the left knee with a sliver of joint space remaining in the right medial compartment. She is wondering about gel shots we have to get those approved today she wants to proceed with cortisone both knees. She does have mild varus deformities of both knees. She is trying to avoid total knee arthroplasty he gets by with conservative measures. SHAKEEL Malagon [address], [address], [place], [address], [employer] 01/14/2025 09:57:59 01/28/2025 text/html Patient is a 64 year old female that presents to the office for annual wellness. Patient continues to see Pulmonology and Orthopedics. Patient reports issues with hives, first started about one year ago. Patient reports every time her skin brushes against or touches something she breaks out in itchy hives. Patient typically takes Benadryl and applies topical Hydrocortisone and symptoms improve. Patient reports lower abdominal pain for about 6 months, shortly after starting Metformin. Patient reports symptoms have started to improve. Patient denies nausea vomiting and diarrhea. Patient denies if anything makes the pain better or worse. Patient stopped Metformin last month Patient reports pocket on right side of her neck that she noticed one month ago. Patient denies any changes or pain to area. Patient reports accidentally spraying wound cleanser up her nose in April thinking it was the nasal spray. Patient reports she has not been able to smell since the incident. 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
--- NOTE | 2025-02-08 16:43 | ECG_ITS ---
Test Date: 2025-02-08 18:02:58 Measurements Intervals [place] Rate: 85 P: 12 CO: 144 QRS: 12 QRSD: 92 T: 83 QT: 338 QTc: 404 Interpretive Statements SINUS RHYTHM WITH SINUS ARRHYTHMIA NONSPECIFIC ST & T-WAVE ABNORMALITY ABNORMAL ECG No previous ECG available for comparison Electronically Signed On 02-09-2025 07:38:47 CDT by Jeff Garcia M.D.
[2025-02-08] MEDS: ACETAMINOPHEN 500 MG TABLET 1000 MG PO (16:49)
[2025-02-08] MEDS: SODIUM CHLORIDE 0.9% IV 1,000 ML 999 ML IV CONT (16:49)
[2025-02-08 17:04] LABS: Basophils Percent Auto 0.4 % (0.2-1.2); Eosinophils Absolute Auto 0.1 K/mm3 (0-0.3); Eosinophils Percent Auto 2.9 % (0-4.4); Hematocrit 40.3 % (37.0-47.0); Hemoglobin 13.5 g/dL (12.0-15.0); Immature Granulocyte Absolute 0.01 K/mm3 (0.00-0.031); Immature Granulocyte Percent A 0.2 % (0-0.5); Lymphocytes Absolute Auto 1.06 K/mm3 (0.9-3.2); Mean Corpuscular HGB Conc 33.5 g/dl (32-36); Mean Corpuscular Hemoglobin 29.8 pg (26-34); Mean Platelet Volume 12.3 fl (7.4-10.4); Monocytes Absolute Auto 0.4 K/mm3 (0.1-0.6); Monocytes Percent Auto 8.7 % (2.6-8.5); Neutrophils Absolute Auto 3.2 K/mm3 (1.3-6.7); Neutrophils Percent Auto 65.8 % (45.5-73.1); Platelet Count Result 191 k/mm3 (150-375); Red Blood Count 4.53 M/mm3 (4.2-5.4); Red Cell Distribution Width 13.2 % (11.5-14.5); White Blood Count 4.8 K/mm3 (4.5-10.0)
[2025-02-08 17:11] LABS: Alanine Aminotransferase 38 U/L (6-35); Albumin Level 4.7 g/dL (3.5-5.1); Alkaline Phosphatase 128 U/L (38-126); Anion Gap 10 mmol/L (4-12); Aspartate Amino Transferase 30 U/L (14-36); Bilirubin,Total 0.4 mg/dL (0.2-1.3); Blood Urea Nitrogen 10 mg/dL (7-17); Calcium 9.6 mg/dL (8.4-10.2); Carbon Dioxide 27 mmol/L (22-30); Chloride 101 mmol/L (98-107); Estimated CRCL calculation 91 ml/min; Estimated Glomerular Filt Rate > 60; Glucose 100 mg/dL (65-110); Sodium 138 mmol/L (137-145)
[2025-02-08] MEDS: IPRATROPIUM 0.5 MG/ALBUTEROL SULFATE 2.5 MG AMPUL.NEB 3 ML INHALATION (17:16)
[2025-02-08 17:23] LABS: Troponin I < 0.012 ng/mL (0.000-0.034)
[2025-02-08 17:40] LABS: Influenza A QL RT-PCR Negative (Negative); Influenza B QL RT-PCR Negative (Negative); RSV RNA, RT-PCR Negative (Negative); SARS-CoV-2 RNA PCR Negative (Negative)
[2025-02-08 17:45] LABS: Add Urine Microscopic? NO; Appearance Urine Clear (Clear); Bilirubin Urine Negative (Negative); Blood Urine Negative (Negative); Color Urine Yellow (Yellow); Glucose Urine UA Negative (Negative); Ketones Urine Negative (Negative); Leukocyte Esterase Ur Negative LEU/UL (Negative); Nitrate Urine Negative (Negative); Protein Urine Negative (Negative); Specific Grav Ur 1.019 (1.001-1.035); Urobilinogen Urine 0.2 mg/dL (<2.0)
--- NOTE | 2025-02-08 19:18 | PC.NURSE ---
Report received from TARSHA Daniel. Assumed care of patient at this time.
== END 2025-02-08 20:33 | disposition home or self-care (01) ==
PROVIDERS: Emergency Provider Physician Assistant
DX: J18.9 Pneumonia, unspecified organism (principal); J06.9 Acute upper respiratory infection, unspecified; Z20.822 Contact with and (suspected) exposure to COVID-19; R94.31 Abnormal electrocardiogram [ECG] [EKG]
CPT/HCPCS: 36415; 71046; 80053; 81003; 84484; 85025; 87637; 93005; 94640; 96360; 99284; A9270; J7030